=== PATIENT | male | born 1955 | race Caucasian/White ===

== ENCOUNTER 2017-08-01 14:34 | Outpatient (CLI) | payer BC ==
[2017-08-01 15:09] LABS: Hematocrit 40.2 % (42.0-52.0); Mean Platelet Volume 7.6 fL (7.4-10.4); Red Blood Cell (RBC) Count 4.63 mill/uL (4.70-6.10); White Blood Cell (WBC) Count 7.2 thou/uL (4.8-10.8)
[2017-08-01 15:10] LABS: Bilirubin Negative (Negative); Blood, Urine Negative (Negative); Glucose, Urine (Dipstick) Negative (Negative); Ketone, Urine Negative (Negative); Nitrite Negative (Negative); Protein, Urine (Dipstick) Negative (Neg-Trace); Urobilinogen 0.2 mg/dL (0.2-1.0)
[2017-08-01 15:14] LABS: Bacteria/HPF None Seen HPF (None Seen); Hyaline Casts/LPF 4-6 HYALINE CAST LPF (0-3 Hyaline); RBC/HPF 0-3 HPF (0-3); Squamous Epithelial 0-3 HPF (0-3); WBC/HPF 0-3 HPF (0-3)
[2017-08-01 15:17] LABS: PTT 28.2 SEC (22.9-36.1)
[2017-08-01 15:31] LABS: Anion Gap 15 mmol/L (10-20); BUN (Urea Nitrogen) 38 mg/dL (8.4-25.7); Calc. Creatinine Clearance 0 mL/min (70-130); Calcium 9.9 mg/dL (7.8-10.44); Carbon Dioxide 22 mmol/L (23-31); Chloride 101 mmol/L (98-107); Estimated GFR-MDRD 29
--- NOTE | 2017-08-04 17:57 | EKG ---
Test Reason : Blood Pressure : / mmHG Vent. Rate : 073 BPM Atrial Rate : 073 BPM P-R Int : 180 ms QRS Dur : 124 ms QT Int : 390 ms P-R-T Axes : 031 -30 -06 degrees QTc Int : 429 ms Normal sinus rhythm Left axis deviation Left ventricular hypertrophy with QRS widening Abnormal ECG When compared with ECG of 05-APR-2017 14:30, No significant change was found Confirmed by СЕРГЕЙ VILA ([id number]) on 08/04/2017 5:56:41 PM Referred By: Constantino KRUSE Confirmed By:СЕРГЕЙ VILA
== END 2017-08-01 14:35 | disposition home or self-care (01) ==
LOC: LABBT 14:34
PROVIDERS: ATTEND Urology
DX: Z01.810 Encounter for preprocedural cardiovascular examination (principal); Z85.51 Personal history of malignant neoplasm of bladder
CPT/HCPCS: 80048; 81001; 85027; 85610; 85730; 87086; 93005; 93010

== ENCOUNTER 2017-08-09 10:10 | Outpatient (CLI) | payer BC | END 2017-08-09 10:11 | disposition home or self-care (01) | LOC: LABBT 10:10 | PROVIDERS: ATTEND Urology | DX: Z01.818 Encounter for other preprocedural examination (principal); Z85.51 Personal history of malignant neoplasm of bladder | CPT/HCPCS: 86850; 86900; 86901 ==

== ENCOUNTER 2017-08-14 06:23 | Day surgery (SDC) | payer BC ==
[2017-08-01 14:45] VITALS: BMI 31.8
[2017-08-14] MEDS ORDERED: Fentanyl 250 MCG/5 ML VIAL ONE (06:34)
[2017-08-14] MEDS ORDERED: mitoMYcin 40 MG in Sodium Chloride 0.9% 40 ML I-VESIC SCH (07:00)
[2017-08-14] MEDS ORDERED: Levofloxacin 500 mg/D5W 100 ml Premix Bag ONE (07:46)
[2017-08-14] MEDS ORDERED: Iothalamate Meglumine 60% 50 ML VIAL FS ONE ×2 (08:45)
[2017-08-14] MEDS ORDERED: PHENYLEPHRINE-NS 100 MCG/ML 10 ML SYRINGE ONE (09:00)
[2017-08-14] MEDS ORDERED: ePHEDrine/0.9% NaCl/PF SYRINGE 50 mg/10 ml ONE (09:00)
[2017-08-14] MEDS ORDERED: Propofol 200 MG/20 ML VIAL ONE (09:00)
[2017-08-14] MEDS ORDERED: Glycopyrrolate 0.2 MG/ML 5 ML SYRINGE ONE (09:00)
[2017-08-14] MEDS ORDERED: Lidocaine 2% PF 10 ML AMP (For Epidural Use) ONE (09:00)
[2017-08-14] MEDS ORDERED: Ondansetron HCl/PF 4 MG/2 ML Vial ONE (09:00)
[2017-08-14] MEDS ORDERED: Dexamethasone 20 MG/5 ML VIAL ONE (09:00)
[2017-08-14] MEDS ORDERED: Phenazopyridine HCl 97.5 MG TABLET ONE ×2 (10:43)
[2017-08-14] MEDS ORDERED: Oxybutynin Chloride 5 MG TAB ONE (10:43)
--- NOTE | 2017-08-14 12:33 | RAD ---
RETROGRADE PYELOGRAM: A total of 9 fluoroscopic images presented from the OR. Indication: Intraoperative imaging during cystoscopy and retrograde procedure. Comparison: 04-15-17. The prior study indicated placement of right ureteral stent. FINDINGS: On today's exam there is opacification of the right collecting structures. There appears to be mild prominence of the right renal pelvis and there is questionable narrowing at the UPJ. The visualized ureter is otherwise unremarkable. POS: [facility]
--- NOTE | 2017-08-14 12:44 | OP ---
DATE OF CONSULTATION: 08/14/2017 PRIMARY CARE PHYSICIAN: Jasmin Yu M.D. PREOPERATIVE DIAGNOSES: 1. Mr. 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 2. History of superficial multifocal bladder cancer, combination of grade I, high-grade with recurrence, status post induction BCG. POSTOPERATIVE DIAGNOSES: 1. Mr. 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 2. History of superficial multifocal bladder cancer, combination of grade I, high-grade with recurrence, status post induction BCG. PROCEDURES: Cystoscopy, fulguration of multiple bladder tumors; approximately 20 satellite lesions, most of which are size approximately 5-8 mm, largest in the posterior, largest in the dome, approximately 1 cm, 8 mm respectively. Right retrograde pyelogram , intravesical mitomycin-C. SURGEON: Pauline Sandoval D.O. ANESTHESIA: General. COMPLICATIONS: None apparent. SPECIMEN: None. EBL: None. IV FLUIDS: 800 mL. INDICATIONS FOR THE PROCEDURE AND HISTORY: Mr. Florian is a 62-year-old male with history of chronic renal insufficiency status post left nephroureterectomy with bladder cuff, TURBT with pathological T2 high-grade TCC of the bladder. He has had multiple bladder tumor recurrences superficial in nature. He has received adjuvant chemotherapy. He was found to have multiple bladder tumor recurrence of multifocal and had undergone induction BCG uneventfully which he tolerated well. Diagnostic cystoscopy on 08/01/2017 demonstrated multiple satellite lesions. They are small; however multiple in number as above and advised regarding treatment under anesthesia. Risks and complications and indications for the procedure reviewed including, but not limited to, bleeding, pain, infection, injury to adjacent organs, urosepsis, and bladder perforation. All questions answered to his satisfaction, he desired to proceed. DESCRIPTION OF THE PROCEDURE: After an informed consent is signed, the patient is taken to the operating room, placed in a dorsal lithotomy position with the genital area prepped and draped in the usual surgical sterile fashion. A 21- Serbian cystoscope was utilized for cystoscopy which demonstrated no evidence of stricture, no evidence of urethral lesion. Prostatic urethra demonstrated coapting lateral lobes with no significant obstructive component. We entered the bladder with a 21 degree cystoscope. His bladder has an oblong, large capacity morphology. The patient is a tall statured man, we surveyed the bladder with a 30 and a 70 degree lens. The right UO was patulous with clear efflux of urine. Left UO was surgically absent. At the posterior wall most of which are located in the left lateral wall, there are approximately 20 satellite lesions, most of which are approximately 5-8 mm. Two tumor focuses in the dome measured approximately 1 cm and 8 mm respectively. We performed a right retrograde pyelogram first which demonstrated an occult UPJ region; however, there is no evidence of hydronephrosis as the calyces were sharp. He does have an extra renal pelvis with the UPJ component; however, there is no significant functional obstruction as there is adequate excretion of contrast. We then subsequently surveyed the bladder again. I did pass a 26 Serbian continuous sheath resectoscope with a visual obturator to treat the tumors with resection. Unfortunately, due to patient's body habitus and the location of the bladder tumor, the resectoscope would not reach the tumors to be engaged successfully. We attempted multiple times to try to reach the tumors with the bladder near empty. Some of these lesions were able to be fulgurated only with the resectoscope with the bladder near empty state. As visualization is suboptimal with the bladder nearly decompressed to engage these tumors, I did make a decision at this time to transition to a regular cystoscope with an endoscopic Bugbee as this is the only way to engage these tumors as most of them are unable to be reached due to patient's morphology/body habitus, oblong large capacity bladder. Therefore, using a 21-Serbian cystoscope with an endoscopic Bugbee, we desiccated and fulgurated the tumors to eradicate them. We were able to successfully treat the visible tumors. The dome tumors were also treated this with fulguration successfully. Again, I was unable to reach the tumors with the resectoscope loop and the resectoscope sheath unfortunately. We then resurveyed the bladder neck region. I did not see any bladder tumors in the bladder neck of concern. Initially, there may have been a small focus in the bladder neck; however, we surveyed this on multiple occasions with a 30 and a 70 degree lens and I did not see a focus in the bladder neck warranting treatment. We then passed a 20 Serbian three-way Mansfield catheter, 30 mL of sterile water was insufflated. The patient is provided 40 mg of mitomycin-C for intravesical treatments. We will hold retention per protocol and initiate CBI. . He is to be discharged with ciprofloxacin for a course of 3 days, Colace p.r.n. #30, VESIcare 5 mg 1 p.o. daily for 6 days, [place] 5/325 is provided #40 one to two p.o. q.6 hours p.r.n. We were unable to obtain a specimen as I did not want to resect or biopsy tumors that may be unapproachable to fulgurate successfully. Therefore, tumors were fulgurated which required manual pressure suprapubically to engage most of it is tumors as they are challenging to reach. All tumors appeared visibly superficial. I will discuss this matter with patient upon follow up, regarding his next plan of action as he has BCG and chemo-refractory bladder tumor recurrence. Patient underwent uneventful treatment of mitomycin-C, CBI discontinue subsequently with clear urine output. Patient was given voiding trial. Unable to void successfully, 16 Serbian Mansfield catheter to a replaced due to bladder scan demonstrating it 850 mL of postvoid residual. Patient has no prior history of significant urinary retention. He is advised to continue Flomax return to clinic for voiding trial. [facility]
== END 2017-08-14 17:12 | disposition home or self-care (01) ==
LOC: SDC 06:23
PROVIDERS: ATTEND Urology
PROC: 0T5B8ZZ Destruction of Bladder, Via Natural or Artificial Opening Endoscopic (ICD-10-PCS; principal; 2017-08-14)
DX: N32.89 Other specified disorders of bladder (principal); E11.22 Type 2 diabetes mellitus with diabetic chronic kidney disease; I12.9 Hypertensive chronic kidney disease with stage 1 through stage 4 chronic kidney disease, or unspecified chronic kidney disease; N18.9 Chronic kidney disease, unspecified; Z90.6 Acquired absence of other parts of urinary tract; Z98.890 Other specified postprocedural states; Z85.51 Personal history of malignant neoplasm of bladder; Z87.891 Personal history of nicotine dependence
CPT/HCPCS: 51798; 74420; C1758; J1100; J1956; J2001; J2405; J2704; J3010; J7050; J9280; Q9961

== ENCOUNTER 2017-11-28 08:57 | Outpatient (CLI) | payer BC ==
[2017-11-28 10:52] LABS: Bilirubin Negative (Negative); Blood, Urine Trace (Negative); Clarity CLEAR (Clear); Glucose, Urine (Dipstick) Negative (Negative); Leukocyte Negative (Negative); Nitrite Negative (Negative); Protein, Urine (Dipstick) 30 mg/dL (Neg-Trace); Urobilinogen 0.2 mg/dL (0.2-1.0)
[2017-11-28 10:54] LABS: Bacteria/HPF None Seen HPF (None Seen); Hyaline Casts/LPF 0-3 HYALINE CAST LPF (0-3 Hyaline); Pathc Cast-AUWi Flag 0.27 (0-2.49); Squamous Epithelial 0-3 HPF (0-3)
[2017-11-28 10:56] LABS: Renal Epithelial None Seen HPF (0-3); Transitional Epithelial NONE SEEN HPF (0-3)
--- NOTE | 2018-01-27 21:48 | EKG ---
Test Reason : Blood Pressure : / mmHG Vent. Rate : 070 BPM Atrial Rate : 070 BPM P-R Int : 180 ms QRS Dur : 122 ms QT Int : 400 ms P-R-T Axes : 037 -30 -27 degrees QTc Int : 432 ms Normal sinus rhythm Left axis deviation Left ventricular hypertrophy with QRS widening Abnormal ECG When compared with ECG of 01-AUG-2017 14:38, No significant change was found Confirmed by DONNA SCOTT M.D. ([id number]) on 01/27/2018 9:47:58 PM Referred By: URIAH Confirmed By:DONNA SCOTT M.D.
== END 2017-11-28 08:58 | disposition home or self-care (01) ==
LOC: LABBT 08:57
PROVIDERS: ATTEND Urology
DX: Z01.818 Encounter for other preprocedural examination (principal); Z85.51 Personal history of malignant neoplasm of bladder
CPT/HCPCS: 81001; 87086; 93005; 93010

== ENCOUNTER 2017-12-05 08:52 | Outpatient (CLI) | payer BC | END 2017-12-05 08:53 | disposition home or self-care (01) | LOC: BICCT 08:52 | PROVIDERS: ATTEND Urology | DX: C66.2 Malignant neoplasm of left ureter (principal); Q63.8 Other specified congenital malformations of kidney | CPT/HCPCS: 74176; 80048; 85027; 85610; 85730; 86850; 86900; 86901 ==

== ENCOUNTER 2017-12-11 06:00 | Day surgery (SDC) | payer BC ==
[2017-11-28 09:40] VITALS: BMI 31.4
[2017-12-11] MEDS ORDERED: Iothalamate Meglumine 60% 50 ML VIAL FS ONE (08:18)
[2017-12-11] MEDS ORDERED: Levofloxacin 500 mg/D5W 100 ml Premix Bag ONE (08:22)
[2017-12-11] MEDS ORDERED: Midazolam HCl 2 mg/2 ml Vial ONE (08:30)
[2017-12-11] MEDS ORDERED: Fentanyl 100 MCG/2 ML VIAL ONE (08:30)
[2017-12-11] MEDS ORDERED: Oxybutynin 5 MG TAB ONE (09:59)
[2017-12-11] MEDS ORDERED: Phenazopyridine HCl 97.5 MG TABLET ONE (09:59)
--- NOTE | 2017-12-11 10:11 | RAD ---
RETROGRADE URETEROGRAM INTRAOPERATIVE FLUOROSCOPY: History: Ureteral obstruction. FINDINGS: Intraoperative fluoroscopy is provided for retrograde ureterogram as performed by Dr. Sandoval. Th ree spot fluoroscopic images show contrast opacification of a nondistended right ureter and a dilated right renal pelvis and calices. The appearance is similar to the 08-14-17 exam. Fluoro equals 21 mGy*cm^2. POS: [facility]
[2017-12-11] MEDS ORDERED: Sodium Chloride 0.9% 10 ML ONE (11:15)
--- NOTE | 2017-12-11 11:21 | OP ---
DATE OF PROCEDURE: 12/11/2017 SURGEON: Dr. Pauline Sandoval PREOPERATIVE DIAGNOSES: 1. A 62-year-old male with history of left pathologic T2 high-grade transitional cell carcinoma of the left renal pelvis and ureter, status post left nephroureterectomy with bladder cuff. 2. History of bladder cancer, TURBT high and low-grade, superficial on maintenance BCG. 3. Recent cystoscopy grossly negative for visible recurrence; however, positive cytology. 4. History right UPJ moiety with no evidence of functional obstruction on Lasix renal scan. POSTOPERATIVE DIAGNOSES: 1. A 62-year-old male with history of left pathologic T2 high-grade transitional cell carcinoma of the left renal pelvis and ureter, status post left nephroureterectomy with bladder cuff. 2. History of bladder cancer, TURBT high and low-grade, superficial on maintenance BCG. 3. Recent cystoscopy grossly negative for visible recurrence; however, positive cytology 4. History right UPJ moiety with no evidence of functional obstruction on Lasix renal scan. PROCEDURE: Cystoscopy, right retrograde pyelogram, bladder biopsy of the dome, fulguration of biopsy site, 18 Ethiopian 3-way Mansfield catheter to gravity, 3-way port plugged. INTRAOPERATIVE FINDINGS: 1. [place] large capacity bladder with erythematous changes at the dome, nonspecific. 2. Changes consistent with radiation cystitis. 3. Diffuse oozing from the bladder mucosa with distention consistent with BCG cystitis. 4. Right UO patulous. 5. Right retrograde pyelogram demonstrating no evidence of filling defect. 6. Right ureteropelvic junction moiety with no evidence of function obstruction , prompt excretion of contrast noted. INDICATIONS FOR THE PROCEDURE AND HISTORY: Mr. Florian is a 62-year-old diabetic male with history of chronic renal insufficiency, status post left nephroureterectomy with bladder cuff, a TURBT. The patient has undergone induction and maintenance BCG completed 08/2017. Surveillance cystoscopy 2017 demonstrated no visible recurrence. There were some erythematous changes consistent with radiation cystitis; however, no visible papillary recurrence was found. As there is positive cytology, restaging CT was obtained which demonstrated no evidence of visible recurrence, he presents today for exam under anesthesia. Of note, he has a large oblong bladder, we were unable to reach his bladder dome recurrence with the resectoscope on last exam under anesthesia. Therefore, Bugbee biopsy was utilized to fulgurate the bladder tumor lesions previously. Today we have ordered a long resectoscope so that we may approach his bladder dome lesion if indicated. Risks and complications of the procedure was reviewed with him in detail including, but not limited to, bleeding, pain, infection, injury to adjacent organs, urosepsis, bladder perforation clot retention. All questions answered to his satisfaction and he desired to proceed. DESCRIPTION OF THE PROCEDURE: After an informed consent is signed, the patient is taken to the operating room, placed in a dorsal lithotomy position with the genital area prepped and draped in the usual surgical sterile fashion. Again, there is no evidence of urethral lesion, prostatic urethra demonstrated mild coapting lateral lobes. Upon entering the bladder, the right UO was identified patulous in nature with clear efflux of urine. The bladder again demonstrated very long morphology. There was no evidence of recurrence, however, at the bladder dome, there were erythematous areas at the dome with surface area approximately 1.5-2 cm. With distention of the bladder, he began to ooze from these sites, along with diffuse areas of hemorrhagic cystitis consistent with prior BCG cystitis. At this time, using a bladder biopsy and endoscopically biopsied multiple areas at the dome erythematous area. We did transition to a long resectoscope which has been ordered for Mr. Florian. We were able to approach the bladder dome with the long resectoscope without significant issues. Fulguration of the biopsy site as well as the erythematous patch was performed with a gyrus bipolar loop. He does have a tendency for oozing diffusely in the bladder mucosa and this is consistent with BCG cystitis. With adequate hemostasis I then performed a right retrograde pyelogram. This demonstrated chronic right UPJ morphology. He has an extra renal pelvis as previously noted. Upon injection of contrast there was no evidence of filling defect. There is adequate and prompt excretion of contrast. Multiple fluoroscopy images were obtained. He tolerated the procedure well and an 18 Ethiopian three-way Mansfield catheter was inserted with CBI port plugged. This was attached to a leg bag gravity bag demonstrating pink to red tinged urine. He will follow up with me next Saturday to review pathology. If pathology is negative, we will resume his maintenance BCG. [facility]
[2017-12-11] MEDS ORDERED: Lidocaine 1% PF 5 ML VIAL ONE (15:56)
[2017-12-11] MEDS ORDERED: Propofol 200 MG/20 ML VIAL ONE (15:56)
[2017-12-11] MEDS ORDERED: Glycopyrrolate 0.2 MG/ML 5 ML SYRINGE ONE (15:56)
[2017-12-11] MEDS ORDERED: ePHEDrine/0.9% NaCl/PF SYRINGE 50 mg/10 ml ONE (15:56)
[2017-12-11] MEDS ORDERED: Dexamethasone 20 MG/5 ML VIAL ONE (15:56)
[2017-12-11] MEDS ORDERED: Ondansetron HCl/PF 4 MG/2 ML Vial ONE (15:56)
[2017-12-11] MEDS ORDERED: PHENYLEPHRINE-NS 100 MCG/ML 10 ML SYRINGE ONE (15:56)
== END 2017-12-11 11:28 | disposition home or self-care (01) ==
LOC: SDC 06:00
PROVIDERS: ATTEND Urology
PROC: 0T5B8ZZ Destruction of Bladder, Via Natural or Artificial Opening Endoscopic (ICD-10-PCS; principal; 2017-12-11)
PROC: 0TBB8ZX Excision of Bladder, Via Natural or Artificial Opening Endoscopic, Diagnostic (ICD-10-PCS; principal; 2017-12-11)
DX: N30.00 Acute cystitis without hematuria (principal); N30.20 Other chronic cystitis without hematuria; C65.2 Malignant neoplasm of left renal pelvis; C66.2 Malignant neoplasm of left ureter; I12.9 Hypertensive chronic kidney disease with stage 1 through stage 4 chronic kidney disease, or unspecified chronic kidney disease; E11.22 Type 2 diabetes mellitus with diabetic chronic kidney disease; N18.3 Chronic kidney disease, stage 3 (moderate); E78.1 Pure hyperglyceridemia; Q63.8 Other specified congenital malformations of kidney; N40.0 Benign prostatic hyperplasia without lower urinary tract symptoms; Z85.51 Personal history of malignant neoplasm of bladder; Z92.21 Personal history of antineoplastic chemotherapy; Z87.891 Personal history of nicotine dependence; Z79.2 Long term (current) use of antibiotics; Z79.899 Other long term (current) drug therapy; Z90.5 Acquired absence of kidney; Z98.890 Other specified postprocedural states
CPT/HCPCS: 36416; 74420; 88305; C1758; J1100; J1642; J1956; J2001; J2250; J2405; J2704; J3010; Q9961

== ENCOUNTER 2018-01-30 12:08 | Outpatient (CLI) | payer BC ==
--- NOTE | 2018-01-30 14:05 | RAD ---
PA AND LATERAL CHEST X-RAY: 01/30/2018 HISTORY: Preoperative evaluation. COMPARISON: 11/19/2016 FINDINGS: A tunneled right internal jugular vein Mediport catheter remains in place and unchanged in position. The cardiac silhouette is stable in size. The pulmonary vasculature is within normal limits. The l ungs are clear. Vascular calcification is seen in the thoracic aorta. There has been no interval ch uriel from the prior exam. IMPRESSION: Stable chest without evidence of an acute cardiopulmonary process. POS: [facility]
== END 2018-01-30 12:09 | disposition home or self-care (01) ==
LOC: RAD 12:08
PROVIDERS: ATTEND Urology
DX: C66.2 Malignant neoplasm of left ureter (principal); E11.22 Type 2 diabetes mellitus with diabetic chronic kidney disease; N18.9 Chronic kidney disease, unspecified; C67.9 Malignant neoplasm of bladder, unspecified; Q63.8 Other specified congenital malformations of kidney
CPT/HCPCS: 71046

== ENCOUNTER 2018-02-20 11:36 | Outpatient (CLI) | payer BC ==
[2018-02-20 12:17] LABS: Bilirubin Negative (Negative); Blood, Urine Negative (Negative); Clarity CLEAR (Clear); Glucose, Urine (Dipstick) Negative (Negative); Leukocyte Negative (Negative); Mean Corpuscular HGB CONC 34.8 g/dL (32.0-36.0); Mean Corpuscular Hemoglobin 30.6 pg (27.0-31.0); Mean Platelet Volume 7.9 fL (7.4-10.4); Nitrite Negative (Negative); Platelet Count 157 thou/uL (130-400); Protein, Urine (Dipstick) Negative (Neg-Trace); RBC Distribution Width 13.2 % (11.5-14.5); Red Blood Cell (RBC) Count 4.24 mill/uL (4.70-6.10); Specific Gravity, Urine 1.011 (1.002-1.036); Urobilinogen 0.2 mg/dL (0.2-1.0); White Blood Cell (WBC) Count 6.2 thou/uL (4.8-10.8)
[2018-02-20 12:19] LABS: Bacteria/HPF None Seen HPF (None Seen); Hyaline Casts/LPF 4-6 HYALINE CAST LPF (0-3 Hyaline); Pathc Cast-AUWi Flag 1.01 (0-2.49); RBC/HPF 0-3 HPF (0-3)
[2018-02-20 12:23] LABS: INR-International Normal Ratio 1.1; PTT 29.4 SEC (22.9-36.1); Prothrombin Time 14.2 SEC (12.0-14.7)
[2018-02-20 12:29] LABS: Renal Epithelial None Seen HPF (0-3); Transitional Epithelial NONE SEEN HPF (0-3)
[2018-02-20 12:38] LABS: Anion Gap 13 mmol/L (10-20); BUN (Urea Nitrogen) 38 mg/dL (8.4-25.7); Calc. Creatinine Clearance 0 mL/min (70-130); Calcium 8.9 mg/dL (7.8-10.44); Carbon Dioxide 22 mmol/L (23-31); Chloride 103 mmol/L (98-107); Estimated GFR-MDRD 31; Glucose 105 mg/dL (80-115); Potassium 4.2 mmol/L (3.5-5.1); Sodium 134 mmol/L (136-145)
--- NOTE | 2018-02-20 16:40 | EKG ---
Test Reason : Blood Pressure : / mmHG Vent. Rate : 078 BPM Atrial Rate : 078 BPM P-R Int : 184 ms QRS Dur : 120 ms QT Int : 392 ms P-R-T Axes : 034 -19 -19 degrees QTc Int : 446 ms Normal sinus rhythm Non-specific intra-ventricular conduction delay Moderate voltage criteria for LVH, may be normal variant ST elevation consider lateral injury or acute infarct * ACUTE LA * Abnormal ECG Confirmed by KAYLA REN ([id number]) on 02/20/2018 4:39:58 PM Referred By: ESTHER Confirmed By:KAYLA REN
== END 2018-02-20 11:37 | disposition home or self-care (01) ==
LOC: LABBT 11:36
PROVIDERS: ATTEND Urology
DX: Z01.818 Encounter for other preprocedural examination (principal); C67.9 Malignant neoplasm of bladder, unspecified
CPT/HCPCS: 80048; 81001; 85027; 85610; 85730; 86850; 86900; 86901; 87086; 93005; 93010

== ENCOUNTER 2018-02-26 07:00 | Day surgery (SDC) | payer BC ==
[2018-02-13 10:42] VITALS: BMI 34.9
[2018-02-26] MEDS ORDERED: Midazolam HCl 2 mg/2 ml Vial ONE (08:45)
[2018-02-26] MEDS ORDERED: Fentanyl 100 MCG/2 ML VIAL ONE (08:45)
[2018-02-26] MEDS ORDERED: Levofloxacin 500 mg/D5W 100 ml Premix Bag ONE (08:50)
[2018-02-26] MEDS ORDERED: mitoMYcin 40 MG, Admixture Fee 1 EACH in Sodium Chloride 0.9% 40 ML I-VESIC SCH (09:00)
[2018-02-26] MEDS ORDERED: Iothalamate Meglumine 60% 50 ML VIAL FS ONE (09:16)
[2018-02-26] MEDS ORDERED: Phenazopyridine HCl 97.5 MG TABLET ONE (10:17)
[2018-02-26] MEDS ORDERED: Oxybutynin 5 MG TAB ONE (10:17)
--- NOTE | 2018-02-26 12:33 | OP ---
DATE OF PROCEDURE: 02/26/2018 PREOPERATIVE DIAGNOSES: 1. A 62-year-old male with history of left pathologic T2 N0 high-grade transitional cell of the mildred l pelvis, status post left nephroureterectomy with bladder cuff. 2. History of superficial pathologic TA, high-grade transitional cell carcinoma of the bladder, stat us post maintenance #1 BCG with small papillary recurrence at the posterior wall measuring approximat juan 8 mm. POSTOPERATIVE DIAGNOSES: 1. A 62-year-old male with history of left pathologic T2 N0 high-grade transitional cell of the mildred l pelvis, status post left nephroureterectomy with bladder cuff. 2. History of superficial pathologic TA, high-grade transitional cell carcinoma of the bladder, stat us post maintenance #1 BCG with small papillary recurrence at the posterior wall measuring approximat juan 8 mm. PROCEDURE: Cystoscopy, biopsy of bladder tumor, fulguration of posterior dome, and intravesical sania mycin C. INDICATIONS FOR THE PROCEDURE AND HISTORY: Mr. Florian is a 62-year-old male with history of diabetes, chronic renal insufficiency status post left nephroureterectomy with bladder cuff, pathologic T2 hig h-grade transitional cell carcinoma of the left renal pelvis and ureter. He also has history of mixe d high-grade and low-grade superficial bladder cancer. He has been tolerating maintenance and finish ed induction, #1 BCG. Surveillance cystoscopy demonstrated possible bladder tumor recurrence, and th erefore his maintenance #2 BCG was held and underwent exam under anesthesia which demonstrated acute and chronic cystitis with ulceration, no gross bladder tumor recurrence was noted. He presented for restaging of the cystoscopy which demonstrated a small recurrence at the posterior wall, there was a second recurrence vague in nature on local cystoscopy approximately 6 mm. An area of erythema at the posterior dome consistent with prior BCG cystitis. He presents today for exam under anesthesia. Du e to patient's body habitus/morphology and very large bladder capacity, he requires special long rese ctoscope to reach the dome of the bladder. Risks and complications and indications for the procedure was reviewed with him in detail including, but not limited to, bleeding, pain, infection, injury to adjacent organs, urosepsis, bladder perforation, PE, DVT, perioperative morbidity and all questions w ere answered to his satisfaction. He desired to proceed. DESCRIPTION OF THE PROCEDURE: After an informed consent is signed, the patient is taken to the opera ting room, placed in a dorsal lithotomy position with the genital area prepped and draped in the usua l surgical sterile fashion. A 21-Italian cystoscope was utilized for cystoscopy and a 30 and 70 degre e lens was utilized. I did not appreciate any urethral stricture, lateral lobes coapting with no sig nificant obstruction per se, bladder was entered without any issues. Bladder again demonstrates very large capacity morphology. He has a very oblong bladder and visualization is somewhat suboptimal gi joyce his large bladder capacity. We emptied his bladder complete and a 30 and a 70 degree lens was ut ilized. He does have some hyperemic changes at the dome of the bladder consistent with radiation cys titis. Upon filling the bladder, there is some weepy areas of the mucosa due to cystitis and inflamm atory changes. The UO on the right was appreciated and appeared to be patulous. The left UO was ne gically absent. I did not appreciate any trigonal lesion cystoscopy on today's exam, there was a katarina itary tumor recurrence at the posterior wall wall/dome. This was solitary in nature approximately 8 mm. We were barely able to reach it for biopsy for tissue diagnosis given the oblong large capacity bladder. As I was unable to reach the tumors to be completely excised, at this time I transitioned t o [facility] long resectoscope that we had preordered for this patient. Using the long resectoscope with t he visual obturator, we passed into the bladder uneventfully. Using a gyrus bladder loop, we resecte d this total and it was near obliterated given its small size and the bed of it was fulgurated. Upon filling the bladder, he began to have oozing diffusely at the dome of the bladder consistent with BC G cystitis. I fulgurated those that were amendable to be fulgurated and we did obtain good hemostasi s. He tolerated the procedure well. A 22 Italian three-way Mansfield catheter was placed and clamped and secured for retention and mitomycin-C 40 mg and 40 mL of normal saline was instilled into the bladde r and will be held in retention for 1 hour with subsequent CBI. He will be monitored and anticipate he will be discharged home after his mitomycin C. He will follow up in my clinic next week for posto p and review of pathology and we will resume his maintenance BCG. He is discharged with Cipro 250 fo r 7 days, Tawny p.rnathalie, [place] , #40.
[2018-02-26] MEDS ORDERED: PROPOFOL 200 MG/20 ML VIAL ONE (13:20)
[2018-02-26] MEDS ORDERED: Ketorolac Tromethamine 30 MG/ML VIAL ONE (13:20)
[2018-02-26] MEDS ORDERED: Lidocaine 1% PF 5 ML VIAL ONE (13:20)
[2018-02-26] MEDS ORDERED: Glycopyrrolate 0.2 MG/ML 5 ML SYRINGE ONE (13:20)
== END 2018-02-26 12:45 | disposition home or self-care (01) ==
LOC: SDC 07:00
PROVIDERS: ATTEND Urology
PROC: 0TBB8ZX Excision of Bladder, Via Natural or Artificial Opening Endoscopic, Diagnostic (ICD-10-PCS; principal; 2018-02-26)
DX: C67.4 Malignant neoplasm of posterior wall of bladder (principal); I12.9 Hypertensive chronic kidney disease with stage 1 through stage 4 chronic kidney disease, or unspecified chronic kidney disease; E11.22 Type 2 diabetes mellitus with diabetic chronic kidney disease; N18.3 Chronic kidney disease, stage 3 (moderate); D63.1 Anemia in chronic kidney disease; E78.1 Pure hyperglyceridemia; Q63.8 Other specified congenital malformations of kidney; N40.1 Benign prostatic hyperplasia with lower urinary tract symptoms; R33.8 Other retention of urine; Z85.53 Personal history of malignant neoplasm of renal pelvis; Z87.891 Personal history of nicotine dependence; Z79.84 Long term (current) use of oral hypoglycemic drugs; Z79.899 Other long term (current) drug therapy; Z98.890 Other specified postprocedural states
CPT/HCPCS: 76000; 88305; C1758; C1769; J1642; J1885; J1956; J2001; J2250; J2704; J3010; J7050; J9280; Q9961

== ENCOUNTER 2018-06-05 10:25 | Outpatient (CLI) | payer BC ==
--- NOTE | 2018-06-05 11:22 | CT ---
CT ABDOMEN AND PELVIS WITHOUT IV CONTRAST: Technique: Multiple axial tomograms were obtained through the abdomen and pelvis without IV enhanceme nt. Indication: Transitional cell carcinoma left ureter. Prior left nephrectomy. Comparison: 03-15-17 FINDINGS: Lung bases clear. Liver, spleen, and pancreas appear unremarkable considering limitations of a noncontrasted study. Stomach and duodenum unremarkable. Adrenal glands appear normal. Post left nephrectomy changes. Right kidney is unremarkable for an unenhanced exam. No evidence of hydronephrosis. The right ureter is unremarkable. The bladder is mildly contracted and not well evaluated. Mild bladder wall prominence although this c ould be secondary to the mild contracted state of the bladder. Bowel loops unremarkable. Aorta shows calcification but normal caliber. No adenopathy identified. No significant prostatic hypertrophy. Osseous structures are unremarkable. No significant interval change when compared to CT of 03-15-17. IMPRESSION: 1. Post left nephrectomy change. Bladder wall is mildly prominent but contracted state of the bladder limits adequate evaluation of the urinary bladder. 2. No acute process and no significant change when compared to the CT of 03-15-17. POS: [facility]
== END 2018-06-05 10:26 | disposition home or self-care (01) ==
LOC: CT 10:25
PROVIDERS: ATTEND Urology
DX: C66.2 Malignant neoplasm of left ureter (principal); C67.9 Malignant neoplasm of bladder, unspecified; N18.9 Chronic kidney disease, unspecified; Q63.8 Other specified congenital malformations of kidney; Z90.5 Acquired absence of kidney
CPT/HCPCS: 74176

== ENCOUNTER 2018-07-09 05:56 | Day surgery (SDC) | payer BC ==
[2018-06-26 14:50] VITALS: BMI 35.2
[2018-07-09] MEDS ORDERED: Sodium Chloride 0.9% 10 ML ONE (06:18)
[2018-07-09] MEDS ORDERED: mitoMYcin 40 MG in Sodium Chloride 0.9% 40 ML I-VESIC SCH (06:30)
[2018-07-09] MEDS ORDERED: Levofloxacin 500 mg/D5W 100 ml Premix Bag ONE (06:55)
[2018-07-09] MEDS ORDERED: Iothalamate Meglumine 60% 50 ML VIAL FS ONE (07:07)
[2018-07-09] MEDS ORDERED: Fentanyl 100 MCG/2 ML VIAL ONE ×2 (07:27→09:00)
[2018-07-09] MEDS ORDERED: Midazolam HCl 2 mg/2 ml Vial ONE (07:27)
[2018-07-09] MEDS ORDERED: SUGAMMADEX SODIUM 500 MG/5 ML VIAL ONE (08:43)
[2018-07-09] MEDS ORDERED: B & O 30 MG SUPP ONE (08:43)
[2018-07-09] MEDS ORDERED: Hyoscyamine Sulfate SL 0.125 mg Tablet ONE (09:08)
[2018-07-09] MEDS ORDERED: HYDROmorphone 2 MG/ML VIAL ONE (09:11)
--- NOTE | 2018-07-09 09:25 | RAD ---
RETROGRADE RIGHT UROGRAM: DATE: 07/09/18. HISTORY: Right ureteral stent placement. COMPARISON: 12/11/17. FINDINGS/IMPRESSION: Intraoperative fluoroscopy was provided for Dr. Sandoval. There is opacification of the right marley al collecting system with a dilated right renal pelvis and right renal calyces similar to the prior e xam. Correlation with intraoperative findings is recommended. POS: [facility]
[2018-07-09] MEDS ORDERED: Promethazine HCl 25 MG/ML VIAL IM/IV PRN (10:06)
[2018-07-09] MEDS ORDERED: Non-Formulary Medication 1 EACH PO PRN (10:06)
[2018-07-09] MEDS ORDERED: Ondansetron HCl/PF 4 MG/2 ML Vial IVP PRN (10:06)
[2018-07-09] MEDS ORDERED: HYDROmorphone 0.5 MG/0.5 ML SYRINGE SLOW IVP PRN (10:09)
[2018-07-09] MEDS ORDERED: Morphine 4 MG/ML VIAL ONE ×2 (12:41→13:12)
[2018-07-09] MEDS ORDERED: HYDROcodone/Acetaminophen 5/325 mg Tablet ONE (13:12)
--- NOTE | 2018-07-09 13:29 | OP ---
DATE OF PROCEDURE: 07/09/2018 PREOPERATIVE DIAGNOSIS: 1. 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 2. Status post transurethral resection bladder tumor with history of high grade /low grade superficial TCC on maintenance BCG. 3. BCG cystitis. 4. Chronic renal insufficiency. 5. History of noncompliance. POSTOPERATIVE DIAGNOSES: 1. 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 2. Status post transurethral resection bladder tumor with history of high grade /low grade superficial TCC on maintenance BCG. 3. BCG cystitis. 4. Chronic renal insufficiency. 5. History of noncompliance. PROCEDURE: Cystoscopy, right retrograde pyelogram, TURBT of dome lesion, fulguration of biopsy site, intravesical Mitomycin C instillation post-TURBT. SURGEON: Pauline Sandoval D.O. ANESTHESIA: General. COMPLICATIONS: None apparent. DISPOSITION: To the recovery room in stable condition. INTRAOPERATIVE FINDINGS: 1. Mcrae redundant bladder mucosa, with a lesion at the bladder dome approximately 1-1.5 cm. 2. hemorrhagic cystitis changes consistent with BCG. No other lesions found. 3. Mild BPH. 4. Right UO patulous, no evidence of right ureteral filling defect. 5. History of nonobstructing right UPJ with Lasix renal scan demonstrating no evidence of obstruction from the right kidney. SPECIMEN: TUR bladder dome lesion. INDICATIONS FOR THE PROCEDURE AND HISTORY: Mr. 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 He also underwent TURBT due to history of low-grade, high-grade TCC. I had fully informed patient regarding history, indications for a cystectomy if failure, he desired trial of BCG. He has had significant pelvic bladder spasms due to BCG cystitis. He finished his maintenance #2 BCG on 04/01/2018. He underwent surveillance cystoscopy locally 05/29/2018; however, due to severe bladder spasms, I was unable to survey the bladder properly. Therefore, advised regarding exam under anesthesia which he declined. With encouragement, he presents today for cystoscopy, TURBT and exam under anesthesia. Risks and complications of the procedure was fully discussed with patient and family in detail including, but not limited to, bleeding, pain, infection, injury to adjacent organs, urosepsis, bladder perforation. Questions answered to his satisfaction and he desired to proceed. DESCRIPTION OF THE PROCEDURE: After an informed consent is signed, the patient is taken to the operating room, placed in a dorsal lithotomy position with the genital area prepped and draped in the usual surgical sterile fashion. Broad- spectrum antibiotics were provided. A 21 Georgian cystoscope was utilized, which demonstrated no evidence of anterior or posterior urethral lesion. Mild coapting lateral lobes with high median bar was noted. Upon entering the bladder, with distention of the bladder, there was intermittant areas of oozing from the bladder mucosa consistent with BCG cystitis. It took some time to survey the bladder due to the oozing of the bladder mucosa, moreover, a cystoscopy was somewhat challenging as he is significantly redundant bladder and his lesion appeared to be at the dome. We did switch to an ACMI long resectoscope, which was specifically ordered for the patient. Surveying the bladder was performed with the resectoscope on irrigation as bladder mucosa surveillance was difficult due to oozing from the bladder mucosa. We were able to properly survey the bladder with the resectoscope. This was placed with visual obturator. Inspection of the bladder mucosa demonstrated only one area at the dome of the bladder, which required manual pressure at dome to be able to properly engage lesion at the dome due to distance from the bladder neck. We resected this area carefully, as it was challenging to reach even with the resectoscope that was especially brought for the patient. We resected the lesion completely and fulgurated the site successfully. I did attempt to get a deeper resection; however, the bladder mucosa appeared quite attenuated in this region, Due to high risk of bladder perforation I did not pursue a deeper biopsy. There was no evidence of bladder perforation. Bladder was surveyed which I did not see any other lesions. right retrograde pyelogram was performed. This demonstrated history of UPJs previously noted with extrarenal pelvis. His UPJ was previously evaluated with a Lasix renal scan demonstrating no evidence of functional obstruction and I did not see any evidence of filling defect. A 20 Georgian three-way Mansfield catheter was placed, CBI port was plugged. We did instill mitomycin 40 mg in 40 mL of normal saline. We will hold retention per protocol and place CBI. If urine output remains clear, will discharge the patient with a Mansfield catheter. He tends to have episodes of retention with exam under anesthesia. Therefore, we will discharge with indwelling Mansfield catheter. He is discharged with ciprofloxacin until follow up. He may continue his VESIcare, Colace provided. JERRY
== END 2018-07-09 14:50 | disposition home or self-care (01) ==
LOC: SDC 05:56
PROVIDERS: ATTEND Urology
PROC: 0TBB8ZX Excision of Bladder, Via Natural or Artificial Opening Endoscopic, Diagnostic (ICD-10-PCS; principal; 2018-07-09)
DX: C67.9 Malignant neoplasm of bladder, unspecified (principal); N30.90 Cystitis, unspecified without hematuria; T50.A95A Adverse effect of other bacterial vaccines, initial encounter; N40.0 Benign prostatic hyperplasia without lower urinary tract symptoms; I12.9 Hypertensive chronic kidney disease with stage 1 through stage 4 chronic kidney disease, or unspecified chronic kidney disease; E11.22 Type 2 diabetes mellitus with diabetic chronic kidney disease; N18.3 Chronic kidney disease, stage 3 (moderate); E78.5 Hyperlipidemia, unspecified; E03.9 Hypothyroidism, unspecified; Z87.891 Personal history of nicotine dependence; Z85.528 Personal history of other malignant neoplasm of kidney; Z79.84 Long term (current) use of oral hypoglycemic drugs; Z79.899 Other long term (current) drug therapy; Z90.5 Acquired absence of kidney; Z90.6 Acquired absence of other parts of urinary tract
CPT/HCPCS: 74420; 88305; 96374; 96375; A4216; C1758; C1769; J1170; J1642; J1956; J2250; J2270; J3010; J7050; J9280; Q9961

== ENCOUNTER 2018-09-10 09:06 | Outpatient (CLI) | payer BC ==
[2018-09-10 09:56] LABS: #Basophils 0.1 thou/uL (0.0-0.2); #Eosinphils 0.2 thou/uL (0.0-0.7); #Lymphocytes 1.2 thou/uL (1.20-3.40); #Monocytes 0.7 thou/uL (0.11-0.59); #Neutrophils 3.6 thou/uL (1.40-6.50); %Basophils 1.4 % (0.0-1.0); %Eosinophils 3.1 % (0.0-10.0); %Lymphocytes 21.1 % (21.0-51.0); %Monocytes 12.1 % (0.0-10.0); %Neutrophils 62.3 % (42.0-75.0); Hemoglobin 13.3 g/dL (14.0-18.0); Mean Corpuscular HGB CONC 32.7 g/dL (32.0-36.0); Mean Corpuscular Hemoglobin 29.2 pg (27.0-31.0); Mean Corpuscular Volume 89.2 fL (78.0-98.0); Platelet Count 156 thou/uL (130-400); RBC Distribution Width 13.5 % (11.5-14.5); Red Blood Cell (RBC) Count 4.57 mill/uL (4.70-6.10); White Blood Cell (WBC) Count 5.8 thou/uL (4.8-10.8)
[2018-09-10 09:57] LABS: Bilirubin Negative (Negative); Blood, Urine Large (Negative); Clarity CLOUDY (Clear); Glucose, Urine (Dipstick) 100 mg/dL (Negative); Leukocyte Negative (Negative); Nitrite Negative (Negative); Protein, Urine (Dipstick) 30 mg/dL (Neg-Trace); Specific Gravity, Urine 1.013 (1.002-1.036); Urobilinogen 0.2 mg/dL (0.2-1.0); pH, Urine 5.5 (5.0-9.0)
[2018-09-10 09:59] LABS: Bacteria/HPF None Seen HPF (None Seen); Hyaline Casts/LPF 0-3 HYALINE CAST LPF (0-3 Hyaline); Pathc Cast-AUWi Flag 0.29 (0-2.49); RBC/HPF GREATER THAN 50-TNTC HPF (0-3); Squamous Epithelial None Seen HPF (0-3)
[2018-09-10 10:03] LABS: PTT 29.6 SEC (22.9-36.1); Prothrombin Time 13.3 SEC (12.0-14.7)
[2018-09-10 10:24] LABS: Anion Gap 13 mmol/L (10-20); BUN (Urea Nitrogen) 41 mg/dL (8.4-25.7); Calc. Creatinine Clearance 0 mL/min (70-130); Calcium 9.5 mg/dL (7.8-10.44); Carbon Dioxide 24 mmol/L (23-31); Chloride 107 mmol/L (98-107); Estimated GFR-MDRD 23; Glucose 169 mg/dL (80-115); Potassium 4.8 mmol/L (3.5-5.1); Sodium 139 mmol/L (136-145)
--- NOTE | 2018-09-13 10:29 | EKG ---
Test Reason : Blood Pressure : / mmHG Vent. Rate : 083 BPM Atrial Rate : 083 BPM P-R Int : 176 ms QRS Dur : 112 ms QT Int : 380 ms P-R-T Axes : 035 -23 -01 degrees QTc Int : 446 ms Normal sinus rhythm Voltage criteria for left ventricular hypertrophy ST elevation, consider early repolarization, pericarditis, or injury Abnormal ECG When compared with ECG of 26-JUN-2018 15:20, No significant change was found Confirmed by DR. Isaias HAIDER ([id number]) on 09/13/2018 10:29:02 AM Referred By: URIAH Confirmed By:DR. Isaias HAIDER
== END 2018-09-10 09:07 | disposition home or self-care (01) ==
LOC: LABBT 09:06
PROVIDERS: ATTEND Urology
DX: Z01.818 Encounter for other preprocedural examination (principal); Z12.5 Encounter for screening for malignant neoplasm of prostate; C66.2 Malignant neoplasm of left ureter; C67.9 Malignant neoplasm of bladder, unspecified; E11.22 Type 2 diabetes mellitus with diabetic chronic kidney disease; N18.9 Chronic kidney disease, unspecified; Q63.8 Other specified congenital malformations of kidney; Z87.898 Personal history of other specified conditions
CPT/HCPCS: 80048; 81001; 85025; 85610; 85730; 87086; 93005; 93010

== ENCOUNTER 2018-09-22 11:58 | Outpatient (CLI) | payer BC | END 2018-09-22 11:59 | disposition home or self-care (01) | LOC: LABBT 11:58 | PROVIDERS: ATTEND Urology | DX: Z01.812 Encounter for preprocedural laboratory examination (principal); C66.2 Malignant neoplasm of left ureter; C67.9 Malignant neoplasm of bladder, unspecified; E11.22 Type 2 diabetes mellitus with diabetic chronic kidney disease; N18.9 Chronic kidney disease, unspecified; Z12.5 Encounter for screening for malignant neoplasm of prostate; Q63.8 Other specified congenital malformations of kidney; Z87.448 Personal history of other diseases of urinary system | CPT/HCPCS: 86850; 86900; 86901 ==

== ENCOUNTER 2018-09-24 06:06 | Day surgery (SDC) | payer BC ==
[2018-09-10 09:35] VITALS: BMI 35.2
[2018-09-24] MEDS ORDERED: Levofloxacin 500 mg/D5W 100 ml Premix Bag ONE (06:54)
[2018-09-24] MEDS ORDERED: Fentanyl 100 MCG/2 ML VIAL ONE (08:28)
[2018-09-24] MEDS ORDERED: Midazolam HCl 2 mg/2 ml Vial ONE (08:28)
[2018-09-24] MEDS ORDERED: Glycopyrrolate 0.2 MG/ML 5 ML SYRINGE ONE (09:34)
[2018-09-24] MEDS ORDERED: PROPOFOL 200 MG/20 ML VIAL ONE (09:34)
[2018-09-24] MEDS ORDERED: ePHEDrine/0.9% NaCl/PF SYRINGE 50 mg/10 ml ONE (09:34)
[2018-09-24] MEDS ORDERED: Succinylcholine Chloride 20 MG/ML 10 ml SYRINGE FS ONE (09:34)
[2018-09-24] MEDS ORDERED: Ondansetron PF 4 MG/2 ML Vial ONE (09:34)
[2018-09-24] MEDS ORDERED: Lidocaine 1% PF 5 ML VIAL ONE (09:34)
[2018-09-24] MEDS ORDERED: B & O ONE (10:00)
[2018-09-24] MEDS ORDERED: Hyoscyamine Sulfate SL 0.125 mg Tablet ONE ×2 (10:47→10:51)
[2018-09-24] MEDS ORDERED: Phenazopyridine HCl 97.5 MG TABLET ONE (11:41)
--- NOTE | 2018-09-25 09:02 | OP ---
DATE OF PROCEDURE: 09/24/2018 PREOPERATIVE DIAGNOSES: 1. 63-year-old obese male with history of high-grade transitional cell carcinoma of the renal pelvis, ureter, status post nephroureterectomy with bladder cuff. 2. 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 POSTOPERATIVE DIAGNOSES: 1. 63-year-old obese male with history of high-grade transitional cell carcinoma of the renal pelvis, ureter, status post nephroureterectomy with bladder cuff. 2. 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 PROCEDURES PERFORMED: Cystoscopy, transurethral resection of bladder tumour of multiple satellite bladder tumors, fulguration of bladder tumor. ANESTHESIA: General. COMPLICATIONS: None apparent. DISPOSITION: To recovery room in stable condition. DRAINS: 3-way Mansfield catheter, 30 mL insufflated, CBI plugged to gravity bag. SPECIMEN: TUR of bladder tumor. ESTIMATED BLOOD LOSS: Minimal, less than 50 mL. IV FLUIDS: Approximately 600 mL. INDICATIONS FOR PROCEDURE AND HISTORY: Mr. Florian is a 63-year-old male, with a history of high-grade pathologic T2 TCC of the left renal pelvis, status post nephroureterectomy with bladder cuff. He did receive adjuvant chemotherapy. He has had multiple bladder tumor recurrences, which have been treated with TURBTs. He has undergone induction of maintenance BCG; however, due to positive cytology, presents today for exam under anesthesia. Of note, the patient has had significant irritative symptoms of BCG cystitis; therefore, a local cystoscopy has been quite cumbersome. Moreover, his body habitus is very challenging due to his morbid obesity, very large oblong bladder, which requires a special Olympus scope to be slided in so that we can reach the dome of the bladder tumor. He presents today for exam under anesthesia. Risks and complications including but not limited to bleeding, pain, infection, injury to adjacent organs, urosepsis, bladder or ureteral injury, stricture formation. All questions were answered to his satisfaction and he desired to proceed. DESCRIPTION OF PROCEDURE: After an informed consent was signed, the patient was taken to the operating room and placed in a dorsal lithotomy position with the genital area prepped and draped in the usual surgical sterile fashion. Bilateral CAR hoses, SCDs, and broad-spectrum antibiotics were provided. We initially used a 21-Bengali cystoscope with a 30-degree lens. The anterior and posterior urethra were within normal limits. Bilobar coapting lobes with no obvious obstruction, high median bar was noted. Bladder was entered. Upon filling the bladder, he does have hematuria component diffusely from the bladder mucosa consistent with BCG cystitis. It required some manipulation and time for his bladder to clear to adequately visualize his bladder mucosa. Previous bladder dome lesion was treated with TUR and came back as granulomatous tissue. There was some hyperemic areas consistent with BCG cystitis diffusely. We surveyed the bladder using a 30 and 70-degree lens. There right UO was patulous with clear output. Cystoscopy demonstrated multiple papillary tumor recurrence, which was not present 3 months ago. He had multiple satellite lesions, although small, they were approximately 8 to 9, numerous, located in the posterior bilateral lateral wall and anterior near the dome. Each recurrence was approximately 6 to 8 mm. Most of the tumor was resected. Then, we had to transition to an Olympus long resectoscope and long Gyrus scoop to engage most of these tumors; they were in the lateral wall. Moreover, manual compression of the bladder had to be performed to engage some of the tumors due to his large body habitus. In addition, some of the tumors were only able to be engaged with bladder minimally distended. Most of the tumors were able be resected; however, there were some tumors that it was very difficult to reach; therefore, fulguration was performed instead. At the end of the procedure, no obvious bleeding was appreciated, some weepy mucosa was noted from BCG cystitis, but not warranting obvious fulguration at this time. Most of the bladder tumors recurrence was located: Mid trigone x2, left lateral 2 to 3, right lateral 2 in number, and anterior bladder neck region approximately 2 satellite lesions. Specimen was evacuated with [facility] evacuator. I did have to transition to our standard Gyrus scope, as even with a 12-degree Olympus scope, the lens became suboptimal to use, as he requires torquing of the scope due to tight suspensory ligament of his penis / scrotum hindering the deflection of the resectoscope to engage some of the tumors. At the end of the procedure, we did place 20f 3-way, 30 mL urethral Mansfield catheter to gravity and attached to his leg bag. We will monitor his urine output and if the urine is relatively clear, we will discharge with indwelling Mansfield catheter to leg bag. He will be discharged with ciprofloxacin until followup. He is to resume his Avodart and Flomax regimen as he had symptoms of prostatitis, may continue his VESIcare for bladder spasms. As I previously discussed with the patient, I will again discuss with him regarding radical cystectomy as he has had accelerated recurrence despite BCG. Job ID: [id number] MTDD
== END 2018-09-24 13:35 | disposition home or self-care (01) ==
LOC: SDC 06:06
PROVIDERS: ATTEND Urology
PROC: 0T5B8ZZ Destruction of Bladder, Via Natural or Artificial Opening Endoscopic (ICD-10-PCS; principal; 2018-09-24)
DX: C67.9 Malignant neoplasm of bladder, unspecified (principal); N30.81 Other cystitis with hematuria; I12.9 Hypertensive chronic kidney disease with stage 1 through stage 4 chronic kidney disease, or unspecified chronic kidney disease; E11.22 Type 2 diabetes mellitus with diabetic chronic kidney disease; N18.3 Chronic kidney disease, stage 3 (moderate); D63.1 Anemia in chronic kidney disease; E78.5 Hyperlipidemia, unspecified; E03.9 Hypothyroidism, unspecified; E66.01 Morbid (severe) obesity due to excess calories; Z68.35 Body mass index [BMI] 35.0-35.9, adult; Z79.84 Long term (current) use of oral hypoglycemic drugs; Z79.899 Other long term (current) drug therapy; Z90.5 Acquired absence of kidney
CPT/HCPCS: 88305; 88307; C1758; C1769; J1642; J1956; J2001; J2250; J2405; J2704; J3010

== ENCOUNTER 2019-07-17 21:04 | Inpatient (IN) | payer BC ==
[2019-07-17] MEDS ORDERED: Acetaminophen 500 MG TAB ONE (21:39)
[2019-07-17 21:46] LABS: #Eosinphils 0.3 thou/uL (0.0-0.7); #Lymphocytes 0.7 thou/uL (1.20-3.40); #Monocytes 0.6 thou/uL (0.11-0.59); #Neutrophils 5.4 thou/uL (1.40-6.50); %Basophils 0.1 % (0.0-1.0); %Eosinophils 3.9 % (0.0-10.0); %Lymphocytes 10.5 % (21.0-51.0); %Monocytes 7.9 % (0.0-10.0); %Neutrophils 77.7 % (42.0-75.0); Hemoglobin 9.3 g/dL (14.0-18.0); Mean Corpuscular HGB CONC 31.3 g/dL (32.0-36.0); Mean Corpuscular Hemoglobin 27.3 pg (27.0-31.0); Mean Corpuscular Volume 87.4 fL (78.0-98.0); Mean Platelet Volume 9.1 fL (7.4-10.4); Platelet Count 180 thou/uL (130-400); Red Blood Cell (RBC) Count 3.41 mill/uL (4.70-6.10); White Blood Cell (WBC) Count 6.9 thou/uL (4.8-10.8)
--- NOTE | 2019-07-17 21:46 | RAD ---
Portable chest: 07/17/2019 at 9:23 PM COMPARISON: 07/17/2019 at 7:46 AM HISTORY: Fever, sepsis protocol FINDINGS: Stable prominence of the cardiac silhouette, pulmonary vascular congestion, and right-sided dialysis catheter. There is mild focal hazy density in the right lung base which could signify volume loss or infiltrate . No lobar consolidation or alveolar edema. IMPRESSION: Mild hazy density in the right lung base as detailed above.
[2019-07-17 21:52] LABS: INR-International Normal Ratio 1.5; Prothrombin Time 18.1 SEC (12.0-14.7)
[2019-07-17 21:53] LABS: PTT 38.9 SEC (22.9-36.1)
[2019-07-17 22:14] LABS: ALT (SGPT) Less than 7 U/L (8-55); AST (SGOT) 13 U/L (5-34); Albumin 2.8 g/dL (3.4-4.8); Alkaline Phosphatase 61 U/L (40-150); Anion Gap 18 mmol/L (10-20); BUN (Urea Nitrogen) 30 mg/dL (8.4-25.7); Bilirubin, Total 1.4 mg/dL (0.2-1.2); CK (CPK) Less than 9 U/L (30-200); Calc. Creatinine Clearance 0 mL/min (70-130); Calcium 8.9 mg/dL (7.8-10.44); Carbon Dioxide 26 mmol/L (23-31); Chloride 97 mmol/L (98-107); Estimated GFR-MDRD 9; Glucose 128 mg/dL (80-115); Potassium 4.7 mmol/L (3.5-5.1); Protein, Total 6.8 g/dL (5.8-8.1); Sodium 136 mmol/L (136-145)
[2019-07-17] MEDS ORDERED: Piperacillin/Tazobactam 3.375 GM VIAL ONE (23:46)
[2019-07-18] MEDS ORDERED: Acetaminophen 650 MG Suppository PR PRN (00:09)
[2019-07-18] MEDS ORDERED: Ondansetron PF 4 MG/2 ML Vial IVP PRN (00:09)
[2019-07-18] MEDS ORDERED: Ondansetron ODT 4 MG TAB PO PRN (00:09)
[2019-07-18 01:30] VITALS: BMI 27.8
[2019-07-18] MEDS ORDERED: Vancomycin HCl 500 MG in Sodium Chloride 0.9% 100 ML IVPB SCH ×2 (01:45→15:00)
[2019-07-18] MEDS ORDERED: Vancomycin HCl 750 MG in Sodium Chloride 0.9% 250 ML 250 ML IVPB SCH (01:45)
[2019-07-18] MEDS ORDERED: Vancomycin HCl 1 GM in Premix Bag 1 BAG IVPB SCH (01:45)
[2019-07-18] MEDS ORDERED: Vancomycin HCl 1.25 GM in Sodium Chloride 0.9% 250 ML 250 ML IVPB SCH (01:45)
[2019-07-18] MEDS ORDERED: HOLD VANCOMYCIN FOR LEVEL >20 FS SCH (01:45)
[2019-07-18] MEDS ORDERED: HumaLOG 300 UNITS/3 ML VIAL SC PRN (01:56)
[2019-07-18] MEDS ORDERED: Dextrose 50% Abboject 50 ML SYRINGE SLOW IVP PRN (01:56)
[2019-07-18] MEDS ORDERED: Dextrose 5% in Water 1,000 ML IV PRN (01:56)
[2019-07-18] MEDS ORDERED: Vancomycin HCl 1.75 GM in Sodium Chloride 0.9% 500 ML IVPB SCH (02:00)
--- NOTE | 2019-07-18 02:46 | HP ---
TIME OF EVALUATION: 12 a.m. PRIMARY CARE DOCTOR: Magan Yu MD CODE STATUS: Full code. CHIEF COMPLAINT: Fever. HISTORY OF PRESENT ILLNESS: This is a 64-year-old male patient with history of end-stage renal disease, on hemodialysis. The [facility] is a [facility], came to the hospital after having fever associated with severe chills with no clear triggers, no alleviating factors. The patient also has some associated cough with scant sputum production. REVIEW OF SYSTEMS: All systems were reviewed and negative except for the findings mentioned above. PAST MEDICAL HISTORY: The patient has a history of end-stage renal disease, on hemodialysis Saturday, , and Saturday, diabetes, hypertension, history of bladder cancer. PAST SURGICAL HISTORY: Bilateral kidney removal, bladder removal, tonsillectomy. PSYCHIATRIC HISTORY: No previous psych history. SOCIAL HISTORY: No alcohol. No drugs. Former tobacco user. The patient quit smoking more than 10 years ago. Lives in a long-term facility. KNOWN ALLERGIES: No known drug allergies. REPORTED MEDICATIONS: 1. Aspirin. 2. Carvedilol. 3. Fenofibrate. 4. Furosemide. 5. Levemir. 6. Humulin R. 7. Pantoprazole. 8. Polyethylene glycol. 9. Pregabalin. 10. Senna. 11. Tylenol. 12. Benzocaine. 13. Calcium carbonate. 14. Clonidine. 15. Guaifenesin. 16. Loperamide. 17. Magnesium hydroxide. 18. Simethicone. PHYSICAL EXAMINATION: VITAL SIGNS: On presentation, blood pressure 125/73 with heart rate of 100, respiratory rate was 18, temperature 100.1, pain was 0/10, oxygen saturation was 88 on room air. GENERAL APPEARANCE: The patient is alert, oriented, no acute distress. HEENT: Eyes; normal conjunctivae. Moist oral mucosa. Anicteric. No JVD. RESPIRATORY: Bilateral air entry. No rales. No wheezes. Symmetric expansion. CARDIOVASCULAR: Normal rate, regular rhythm. No murmurs. No gallop. No edema. ABDOMEN: Soft. Normal bowel sounds. MUSCULOSKELETAL: Baseline range of motion and strength. SKIN: Warm and intact. No pallor. No rash. No redness. Capillary refill seems to be intact. NEUROLOGIC: No evidence of any new focal weakness. Cranial nerves seem to be intact. PSYCH: The patient is in good mood. No anxiety. Optimal judgment. DIAGNOSTIC STUDIES: EKG was reviewed. The patient has normal sinus rhythm with a rate of 100, moderate voltage for LVH. Chest x-ray, mild hazy density in the right lung base that seems to be an infiltrate. LABORATORY DATA: Labs are reviewed. The patient has white count 6.9, hemoglobin 9.3, MCV 87.4, platelet count 280. Coagulation; PT 18.1, INR 1.5, PTT 38.9. Sodium 136, potassium 4.7, chloride 97, carbon dioxide 26, anion gap 18, BUN 30, creatinine 6.08, GFR 9, glucose 128, lactic acid 0.8, calcium 8.9, total bilirubin 1.4, AST 13, ALT less than 7, alkaline phosphatase 61. Serum total protein 6.8, albumin 2.9. ASSESSMENT AND PLAN: The patient will be placed in the hospital with following medical problems: 1. Right lower lobe pneumonia seen on the chest x-ray. The patient is a dialysis patient, so we will treat for healthcare-associated pneumonia. We will send cultures and we will adjust as per sensitivity. 2. End-stage renal disease, on dialysis Saturday, , and Saturday, follows with Dr. Sanchez. We will consult Nephrology for dialysis as inpatient. 3. Normocytic anemia, likely secondary to end-stage renal disease. We will defer to Nephrology for any further recommendation. This is stable, can be followed as outpatient. 4. Uncontrolled diabetes with sugar of 128. Reconcile home medications. Place the patient on sliding scale. 5. Deep venous thrombosis prophylaxis. 6. Controlled hypertension. Reconcile home medications. Job ID: [id number]
[2019-07-18 06:52] LABS: #Eosinphils 0.3 thou/uL (0.0-0.7); #Lymphocytes 0.7 thou/uL (1.20-3.40); #Monocytes 0.6 thou/uL (0.11-0.59); #Neutrophils 3.4 thou/uL (1.40-6.50); %Basophils 0.7 % (0.0-1.0); %Eosinophils 6.4 % (0.0-10.0); %Lymphocytes 14.3 % (21.0-51.0); %Monocytes 12.1 % (0.0-10.0); %Neutrophils 66.6 % (42.0-75.0); Hemoglobin 8.2 g/dL (14.0-18.0); Mean Corpuscular HGB CONC 30.6 g/dL (32.0-36.0); Mean Corpuscular Hemoglobin 26.2 pg (27.0-31.0); Mean Corpuscular Volume 85.5 fL (78.0-98.0); Mean Platelet Volume 8.7 fL (7.4-10.4); Platelet Count 151 thou/uL (130-400); Red Blood Cell (RBC) Count 3.14 mill/uL (4.70-6.10)
[2019-07-18 07:44] LABS: Anion Gap 15 mmol/L (10-20); BUN (Urea Nitrogen) 37 mg/dL (8.4-25.7); Calc. Creatinine Clearance 15 mL/min (70-130); Calcium 8.5 mg/dL (7.8-10.44); Carbon Dioxide 27 mmol/L (23-31); Chloride 100 mmol/L (98-107); Estimated GFR-MDRD 8; Glucose 135 mg/dL (80-115); Potassium 4.6 mmol/L (3.5-5.1); Sodium 137 mmol/L (136-145)
[2019-07-18] MEDS: Heparin 5,000 UNITS/ML VIAL SC SCH ×3 (08:24→20:08)
[2019-07-18] MEDS ORDERED: Prevnar 13-Val Conj/PF 0.5 ML SYRINGE IM ONE (09:00)
[2019-07-18 11:32] LABS: Vancomycin, Random 18.7 ug/mL (See Comment)
--- NOTE | 2019-07-18 12:13 | EKG ---
Test Reason : Blood Pressure : / mmHG Vent. Rate : 100 BPM Atrial Rate : 100 BPM P-R Int : 158 ms QRS Dur : 104 ms QT Int : 330 ms P-R-T Axes : 028 -27 -02 degrees QTc Int : 425 ms Normal sinus rhythm Moderate voltage criteria for LVH, may be normal variant Borderline ECG Confirmed by KALPESH VUONG D.O. ([id number]), acquisition editor SHON JACQUES ([id number]) on 07/18/2019 12:13:03 PM Referred By: Confirmed By:KALPESH VUONG D.O.
[2019-07-18] MEDS: Piperacillin/Tazobactam 2.25 GM in Sodium Chloride 0.9% 100 ML IVPB SCH (14:30)
[2019-07-18] MEDS ORDERED: Calcium Carbonate 500 MG ChewTAB PO PRN (15:42)
--- NOTE | 2019-07-18 16:37 | CON ---
DATE OF CONSULTATION: 07/18/2019 CONSULTING PHYSICIAN: Thao Perez MD REASON FOR CONSULTATION: End-stage renal disease evaluation. REASON FOR ADMISSION: Fever. HISTORY OF PRESENT ILLNESS: This is a 64-year-old male with history of end-stage renal disease, hypertension, and diabetes, who came to the hospital with fever. He was at the rehab, previously he was at [facility]. He gets dialysis through a tunneled dialysis catheter. The patient was having cough, chills, and fever and was sent to the main hospital. He is feeling better yesterday after the antibiotic. PAST MEDICAL HISTORY: Positive for end-stage renal disease, diabetes, hypertension, and bladder cancer. PAST SURGICAL HISTORY: Bilateral kidney removal, bladder removal, and tonsillectomy. HOME MEDICATIONS: 1. Aspirin. 2. Carvedilol. 3. Fenofibrate. 4. Furosemide. 5. Levemir. 6. Humulin R. 7. Pantoprazole. 8. Polyethylene glycol. 9. Pregabalin. 10. Senna. 11. Tylenol. 12. Benzocaine. 13. Calcium carbonate. 14. Clonidine. 15. Guaifenesin. 16. Loperamide. 17. Magnesium. 18. Simethicone. ALLERGIES: NO KNOWN DRUG ALLERGIES. SOCIAL HISTORY: No smoking, alcohol, or illicit drugs. FAMILY HISTORY: No history of kidney disease. REVIEW OF SYSTEMS: CONSTITUTIONAL: Negative for weight loss or gain, ability to conduct usual activities. SKIN: Negative for rash, itching. EYES: Negative for double vision, pain. ENT/MOUTH: Negative for nose bleeding, neck stiffness, pain, tenderness. CARDIOVASCULAR: Negative for palpitations, dyspnea on exertion, orthopnea. RESPIRATORY: Negative for shortness of breath, wheezing, cough, hemoptysis, fever or night sweats. GASTROINTESTINAL: Negative for poor appetite, abdominal pain, heartburn, nausea, vomiting, constipation, or diarrhea. GENITOURINARY: Negative for urgency, frequency, dysuria, nocturia. MUSCULOSKELETAL: Negative for pain, swelling. NEUROLOGIC/PSYCHIATRIC: Negative for anxiety, depression. ALLERGY/IMMUNOLOGIC: Negative for skin rash, bleeding tendency. PHYSICAL EXAMINATION: GENERAL: Well-built male, in no apparent distress. VITAL SIGNS: Temperature 98.2, pulse 69, respiratory rate 16, and blood pressure 124/67. HEENT: Atraumatic, normocephalic. Oral mucosa moist. NECK: Supple. CARDIOVASCULAR: S1 and S2. Regular rate and rhythm. RESPIRATORY: Clear. GASTROINTESTINAL: Abdomen is soft. MUSCULOSKELETAL: 1+ edema. DERMATOLOGIC: No skin rash. NEUROLOGIC: Alert and awake. PSYCHIATRIC: Mood and affect normal. LABORATORY DATA: Hemoglobin is 8.2, potassium 4.6, BUN is 37, and creatinine 6.7. ASSESSMENT AND PLAN: 1. End-stage renal disease. Continue dialysis as tolerated. 2. Edema, controlled. 3. Hypertension. 4. Anemia of chronic disease. 5. Obesity. Plan is to continue on dialysis. Continue antibiotics. We will follow. Job ID: [id number]
[2019-07-18] MEDS: Acetaminophen 325 MG TAB PO PRN (20:08)
[2019-07-18] MEDS: Senokot S 8.6-50 MG TAB PO SCH (21:10)
[2019-07-19] MEDS: Piperacillin/Tazobactam 2.25 GM in Sodium Chloride 0.9% 100 ML IVPB SCH ×3 (00:31→23:08)
[2019-07-19] MEDS: Acetaminophen 325 MG TAB PO PRN ×2 (00:31→19:51)
[2019-07-19 05:48] LABS: #Eosinphils 0.5 thou/uL (0.0-0.7); #Lymphocytes 0.8 thou/uL (1.20-3.40); #Monocytes 0.7 thou/uL (0.11-0.59); #Neutrophils 3.1 thou/uL (1.40-6.50); %Basophils 0.1 % (0.0-1.0); %Eosinophils 9.2 % (0.0-10.0); %Lymphocytes 16.2 % (21.0-51.0); %Monocytes 13.5 % (0.0-10.0); %Neutrophils 60.9 % (42.0-75.0); Mean Corpuscular HGB CONC 30.7 g/dL (32.0-36.0); Mean Platelet Volume 8.8 fL (7.4-10.4); Platelet Count 157 thou/uL (130-400); RBC Distribution Width 18.1 % (11.5-14.5); Red Blood Cell (RBC) Count 2.96 mill/uL (4.70-6.10); White Blood Cell (WBC) Count 5.1 thou/uL (4.8-10.8)
[2019-07-19 06:12] LABS: ALT (SGPT) Less than 7 U/L (8-55); AST (SGOT) 12 U/L (5-34); Albumin 2.2 g/dL (3.4-4.8); Alkaline Phosphatase 47 U/L (40-150); Anion Gap 14 mmol/L (10-20); BUN (Urea Nitrogen) 25 mg/dL (8.4-25.7); CRP (Inflammatory) 12.71 mg/dL (= or < 0.5); Calc. Creatinine Clearance 20 mL/min (70-130); Calcium 8.1 mg/dL (7.8-10.44); Carbon Dioxide 26 mmol/L (23-31); Chloride 101 mmol/L (98-107); Estimated GFR-MDRD 12; Globulin 3.4 g/dL (2.4-3.5); Glucose 130 mg/dL (80-115); Potassium 3.9 mmol/L (3.5-5.1); Protein, Total 5.6 g/dL (5.8-8.1); Sodium 137 mmol/L (136-145)
--- NOTE | 2019-07-19 07:04 | PDOC.FM ---
- Subjective Subjective: Pt notes fever last night but feeling well this morning. Some mild SOB w/ continued cough that he states is intermittently productive. Otherwise feeling well. - Objective Vital Signs & Weight: Vital Signs (12 hours) Temp Pulse Resp BP Pulse Ox 07/19/19 05:07 98.0 F 82 20 116/65 97 07/18/19 23:09 99.5 F 92 20 106/59 L 96 07/18/19 20:00 101.1 F H 100 20 123/68 97 Weight Weight 92.986 kg I&O: 07/17/19 07/18/19 07/19/19 06:59 06:59 06:59 Intake Total 500 1690 Output Total 3000 Balance 500 -1310 Result Diagrams: 07/19/19 05:33 07/19/19 05:33 Phys Exam - Physical Examination Constitutional: NAD HEENT: moist MMs Neck: full ROM Respiratory: no wheezing, no rales, no rhonchi minimally decreased BS RLL Cardiovascular: RRR, no significant murmur Gastrointestinal: soft, non-tender Musculoskeletal: no edema, pulses present Neurological: non-focal, moves all 4 limbs Psychiatric: normal affect, A&O x 3 Skin: no rash Dx/Plan (1) Pneumonia Code(s): J18.9 - PNEUMONIA, UNSPECIFIED ORGANISM Status: Acute Qualifiers: Laterality: right Lung location: lower lobe of lung (2) Diabetes mellitus Code(s): E11.9 - TYPE 2 DIABETES MELLITUS WITHOUT COMPLICATIONS Status: Chronic Qualifiers: Diabetes mellitus type: type 2 (3) Dyslipidemia Code(s): E78.5 - HYPERLIPIDEMIA, UNSPECIFIED Status: Chronic (4) HTN (hypertension) Code(s): I10 - ESSENTIAL (PRIMARY) HYPERTENSION Status: Chronic Qualifiers: Hypertension type: essential hypertension Qualified Code(s): I10 - Essential (primary) hypertension - Plan Plan: Health care acquired PNA - RLL pneumonia seen on CXR in dialysis pt - Abx Vanc (pharmacy to dose) and Zosyn - Fever last night - No leukocytosis, trend CBC ESRD - S/p bilateral nephrectomy - , , Sat dialysis pt - Nephro following for inpt dialysis Normocytic Anemia - Likely 2/2 ESRD - Trend CBC Diabetes mellitus II - uncontrolled - Home rx (levemir and humilinR) + SSI - POC glucose checks and hypoglycemic protocol Hypertension - controlled - Home rx: Carvedilol DVT: Heparin Diet: CC Code: Full Addendum - Attending - Attending Attestation Date/Time: 07/19/192128 I personally evaluated the patient and discussed the management with Dr. Santillan. I agree with the History, Examination, Assessment and Plan documented above with any addition or exceptions noted below. PNA- patient states he doesn't live in a NH and that he does home dialysis. So unsure if HCAP or CAP. On Vanc and zosyn renally dosed. COntinue for 48 hours and then deescalate. ESRD-dialysis per nephro 1/2 positive MRSE blood cultures- await sensitivities and discuss with Melissa.
[2019-07-19] MEDS: Senokot S 8.6-50 MG TAB PO SCH ×2 (08:14→19:51)
[2019-07-19] MEDS: Famotidine 20 MG TAB PO SCH (08:14)
[2019-07-19] MEDS: Heparin 5,000 UNITS/ML VIAL SC SCH ×2 (08:14→19:51)
--- NOTE | 2019-07-19 14:26 | PRG ---
DATE OF SERVICE: 07/19/2019 SUBJECTIVE: Patient was seen and examined at bedside and overnight events noted. Patient denies any shortness of breath or chest pain or palpitation. No history of nausea or vomiting or diarrhea or fever or chills or cramps. OBJECTIVE: GENERAL: This is a well-built male, in no acute distress. VITAL SIGNS: Temperature 98.4. Heart rate 89. Respiratory rate . Blood pressure 119/63. HEENT: Atraumatic, normocephalic. Oral mucosa is moist NECK: Supple. CARDIOVASCULAR: S1, S2 heard. Rate and rhythm regular. RESPIRATORY: Clear to auscultation. GASTROINTESTINAL: Abdomen is soft. MUSCULOSKELETAL: No tenderness. No edema. DERMATOLOGIC: No skin rash. NEUROLOGIC: Alert and awake and oriented X3. No focal neurologic deficits. Moving all the extremities. PSYCHIATRIC: Mood and affect normal. LABORATORY DATA: Potassium is 3.9, BUN is 25, creatinine is 4.8. ASSESSMENT: 1. End-stage renal disease. Continue dialysis Saturday, Saturday, and Saturday. 2. Edema. I will remove fluid. 3. Hypertension. 4. Anemia of chronic disease. PLAN: To continue dialysis as tolerated. Job ID: [id number]
[2019-07-20 05:46] LABS: #Eosinphils 0.5 thou/uL (0.0-0.7); #Lymphocytes 0.8 thou/uL (1.20-3.40); #Monocytes 0.7 thou/uL (0.11-0.59); #Neutrophils 3.5 thou/uL (1.40-6.50); %Basophils 0.4 % (0.0-1.0); %Eosinophils 8.4 % (0.0-10.0); %Lymphocytes 14.4 % (21.0-51.0); %Monocytes 12.7 % (0.0-10.0); %Neutrophils 64.1 % (42.0-75.0); Hemoglobin 7.9 g/dL (14.0-18.0); Mean Corpuscular HGB CONC 30.7 g/dL (32.0-36.0); Mean Platelet Volume 9.4 fL (7.4-10.4); Platelet Count 164 thou/uL (130-400); RBC Distribution Width 18.5 % (11.5-14.5); Red Blood Cell (RBC) Count 2.91 mill/uL (4.70-6.10); White Blood Cell (WBC) Count 5.4 thou/uL (4.8-10.8)
[2019-07-20 06:05] LABS: Anion Gap 14 mmol/L (10-20); BUN (Urea Nitrogen) 36 mg/dL (8.4-25.7); Calc. Creatinine Clearance 15 mL/min (70-130); Calcium 8.3 mg/dL (7.8-10.44); Carbon Dioxide 26 mmol/L (23-31); Chloride 99 mmol/L (98-107); Estimated GFR-MDRD 9; Glucose 134 mg/dL (80-115); Sodium 135 mmol/L (136-145)
--- NOTE | 2019-07-20 08:47 | PDOC.FM ---
- Subjective Subjective: Pt is s/p bilateral nephrectomy, cystectomy, prostatectomy due to bladder cancer. This was done at [facility] in April of this year. Pt was hospitalized about a month ago at [facility] for peritonitis. States that since then he has been doing well. Notes one instance of chills and sweats last night. Continued sputum production with his cough however this is improved from admission. - Objective Vital Signs & Weight: Vital Signs (12 hours) Temp Pulse Resp BP BP Pulse Ox 07/20/19 08:00 98.3 F 100 20 135/67 95 07/20/19 07:35 98.4 F 99 16 141/67 H 94 L 07/20/19 05:34 98.3 F 97 20 138/69 96 07/20/19 00:58 98.2 F 95 18 125/65 96 Weight Weight 92.986 kg I&O: 07/19/19 07/20/19 07/21/19 06:59 06:59 06:59 Intake Total 1690 270 Output Total 3000 Balance -1310 270 Result Diagrams: 07/20/19 05:22 07/20/19 05:22 Phys Exam - Physical Examination Constitutional: NAD HEENT: PERRLA, moist MMs Neck: no JVD, full ROM Respiratory: no wheezing, no rhonchi Diffuse rales, greater on the right, good excursion Cardiovascular: RRR, no significant murmur Gastrointestinal: soft, non-tender Musculoskeletal: no edema, pulses present Neurological: non-focal Psychiatric: normal affect, A&O x 3 Skin: no rash Dx/Plan (1) Pneumonia Code(s): J18.9 - PNEUMONIA, UNSPECIFIED ORGANISM Status: Acute Qualifiers: Laterality: right Lung location: lower lobe of lung (2) Diabetes mellitus Code(s): E11.9 - TYPE 2 DIABETES MELLITUS WITHOUT COMPLICATIONS Status: Chronic Qualifiers: Diabetes mellitus type: type 2 (3) Dyslipidemia Code(s): E78.5 - HYPERLIPIDEMIA, UNSPECIFIED Status: Chronic (4) HTN (hypertension) Code(s): I10 - ESSENTIAL (PRIMARY) HYPERTENSION Status: Chronic Qualifiers: Hypertension type: essential hypertension Qualified Code(s): I10 - Essential (primary) hypertension - Plan Plan: Health care acquired PNA - RLL pneumonia seen on CXR in dialysis pt - Abx Vanc (pharmacy to dose) and Zosyn - Afebrile through yesterday - No leukocytosis, trend CBC ESRD - S/p bilateral nephrectomy, prostatectomy, and cystectomy - , Th, Sat dialysis pt - does at home through trialysis catheter - Nephro following for inpt dialysis Normocytic Anemia - Likely 2/2 ESRD - Trend CBC Diabetes mellitus II - uncontrolled - Home rx (levemir and humilinR) + SSI - POC glucose checks and hypoglycemic protocol Hypertension - controlled - Home rx: Carvedilol DVT: Heparin Diet: CC Code: Full Addendum - Attending - Attending Attestation Date/Time: 07/20/19 2171 I personally evaluated the patient and discussed the management with Dr. Santillan. I agree with the History, Examination, Assessment and Plan documented above with any addition or exceptions noted below. Patient here for chills and probable pneumonia based on CXR and PCT level. He is feeling improved. He has high risk for MDR strep infection, and so we will change his abx to renally dose Levaquin and that should be sufficient. Continue to monitor. He is not requiring supplemental O2 and will keep him off that as best we can to prevent dependence.
[2019-07-20] MEDS: Famotidine 20 MG TAB PO SCH (08:55)
[2019-07-20] MEDS: Heparin 5,000 UNITS/ML VIAL SC SCH ×2 (08:56→19:53)
[2019-07-20] MEDS: Senokot S 8.6-50 MG TAB PO SCH ×2 (08:56→19:53)
[2019-07-20 10:42] LABS: Vancomycin, Random 16.3 ug/mL (See Comment)
--- NOTE | 2019-07-20 14:03 | PRG ---
DATE OF SERVICE: 07/20/2019 SUBJECTIVE: A 64-year-old gentleman, being seen for end-stage renal disease. The patient denied any nausea, vomiting, or chest pain. OBJECTIVE: See above. Awake, alert, in no acute distress. VITAL SIGNS: Afebrile, pulse 100, breathing 16, blood pressure 135/67. GENERAL APPEARANCE AND MENTAL STATUS: Fair. HEAD/NECK: Normocephalic. Atraumatic. EYES: EOMI. No deformity. EARS: Clear. No ulcers. NOSE: Intact. No lesions. MOUTH: Clear. No discharge. THROAT: Clear. No exudate. LUNGS: Clear. No crackles. CARDIAC: S1, S2. No rub. ABDOMEN: Benign. Bowel sounds positive. GENITALIA/RECTUM: [place] absent. BACK/EXTREMITIES: Edema 0+. NEUROLOGICAL: Alert and motor intact. SKIN: LYMPHATICS: LABORATORY DATA: Potassium 4. ASSESSMENT AND PLAN: 1. Stage 6 chronic kidney disease, continue hemodialysis. 2. Hypertension, stable. 3. Anemia, stable. Medications based on GFR appropriate. Job ID: [id number]
[2019-07-20] MEDS: Acetaminophen 325 MG TAB PO PRN (19:54)
[2019-07-21 06:39] LABS: #Eosinphils 0.1 thou/uL (0.0-0.7); #Lymphocytes 0.5 thou/uL (1.20-3.40); #Monocytes 0.5 thou/uL (0.11-0.59); #Neutrophils 3.5 thou/uL (1.40-6.50); %Basophils 0.6 % (0.0-1.0); %Eosinophils 1.9 % (0.0-10.0); %Lymphocytes 11.4 % (21.0-51.0); %Neutrophils 76.1 % (42.0-75.0); Hemoglobin 8.1 g/dL (14.0-18.0); Mean Corpuscular HGB CONC 30.7 g/dL (32.0-36.0); Mean Corpuscular Hemoglobin 27.1 pg (27.0-31.0); Mean Platelet Volume 9.5 fL (7.4-10.4); Platelet Count 141 thou/uL (130-400); RBC Distribution Width 18.6 % (11.5-14.5); Red Blood Cell (RBC) Count 2.99 mill/uL (4.70-6.10); White Blood Cell (WBC) Count 4.6 thou/uL (4.8-10.8)
[2019-07-21 06:57] LABS: Anion Gap 19 mmol/L (10-20); BUN (Urea Nitrogen) 45 mg/dL (8.4-25.7); Calc. Creatinine Clearance 12 mL/min (70-130); Calcium 8.7 mg/dL (7.8-10.44); Carbon Dioxide 22 mmol/L (23-31); Chloride 98 mmol/L (98-107); Estimated GFR-MDRD 7; Glucose 137 mg/dL (80-115); Potassium 4.6 mmol/L (3.5-5.1); Sodium 134 mmol/L (136-145)
[2019-07-21] MEDS: Famotidine 20 MG TAB PO SCH (07:44)
[2019-07-21] MEDS: Senokot S 8.6-50 MG TAB PO SCH ×2 (07:44→20:38)
[2019-07-21] MEDS: Heparin 5,000 UNITS/ML VIAL SC SCH ×2 (07:44→20:35)
--- NOTE | 2019-07-21 08:28 | PDOC.FM ---
- Subjective Subjective: Pt notes subjective fever overnight last night - temp was 100. Notes shortness of breath that is only present while laying down. Improvement in his cough. - Objective Vital Signs & Weight: Vital Signs (12 hours) Temp Pulse Resp BP Pulse Ox 07/21/19 07:50 97.8 F 87 22 H 152/75 H 97 07/21/19 07:40 94 L 07/21/19 04:28 97.5 F L 82 18 148/75 H 97 07/21/19 00:25 97.9 F 85 18 131/67 96 Weight Weight 92.986 kg I&O: 07/20/19 07/21/19 07/22/19 06:59 06:59 06:59 Intake Total 270 Balance 270 Result Diagrams: 07/21/19 05:49 07/21/19 05:49 Phys Exam - Physical Examination Constitutional: NAD HEENT: moist MMs Neck: full ROM Respiratory: no wheezing No respiratory distress Cardiovascular: RRR Neurological: non-focal, moves all 4 limbs Psychiatric: normal affect, A&O x 3 Dx/Plan (1) Pneumonia Code(s): J18.9 - PNEUMONIA, UNSPECIFIED ORGANISM Status: Acute Qualifiers: Laterality: right Lung location: lower lobe of lung (2) Diabetes mellitus Code(s): E11.9 - TYPE 2 DIABETES MELLITUS WITHOUT COMPLICATIONS Status: Chronic Qualifiers: Diabetes mellitus type: type 2 (3) Dyslipidemia Code(s): E78.5 - HYPERLIPIDEMIA, UNSPECIFIED Status: Chronic (4) HTN (hypertension) Code(s): I10 - ESSENTIAL (PRIMARY) HYPERTENSION Status: Chronic Qualifiers: Hypertension type: essential hypertension Qualified Code(s): I10 - Essential (primary) hypertension - Plan Plan: PNA - RLL pneumonia seen on CXR in dialysis pt - DC vanc zosyn - started levaquin yest, HD dosed - Afebrile - No leukocytosis, trend CBC - Rehab screen ordered ESRD - S/p bilateral nephrectomy, prostatectomy, and cystectomy - , , Sat dialysis pt - does at home through trialysis catheter - Nephro following for inpt dialysis Normocytic Anemia - Likely 2/2 ESRD - Trend CBC Diabetes mellitus II - uncontrolled - Home rx (levemir and humilinR) + SSI - POC glucose checks and hypoglycemic protocol Hypertension - controlled - Home rx: Carvedilol DVT: Heparin Diet: CC Code: Full Pending rehab screen for return to [facility] Addendum - Attending - Attending Attestation Date/Time: 07/21/19 2718 I personally evaluated the patient and discussed the management with Dr. Santillan. I agree with the History, Examination, Assessment and Plan documented above with any addition or exceptions noted below. Patient here for pneumonia in the setting of ESRD and recent hospitalization. He is overall looking well. Only requiring O2 when not deep breathing. Labs stable. He is now on Levaquin. Awaiting placement but should be stable for discharge once that is arranged.
[2019-07-21] MEDS ORDERED: Heparin 10,000 UNITS/ 10 ML VIAL ONE (09:00)
[2019-07-21] MEDS ORDERED: Vancomycin HCl 750 MG in Sodium Chloride 0.9% 250 ML 250 ML IVPB SCH (11:00)
[2019-07-21] MEDS ORDERED: Vancomycin HCl 500 MG in Sodium Chloride 0.9% 100 ML IVPB SCH (11:00)
[2019-07-21] MEDS ORDERED: HOLD VANCOMYCIN FOR LEVEL >20 FS SCH (11:00)
[2019-07-21] MEDS ORDERED: Vancomycin HCl 1.25 GM in Sodium Chloride 0.9% 250 ML 250 ML IVPB SCH (11:00)
[2019-07-21] MEDS ORDERED: Vancomycin HCl 1 GM in Premix Bag 1 BAG IVPB SCH (11:00)
--- NOTE | 2019-07-21 15:55 | PRG ---
DATE OF SERVICE: 07/21/2019 SUBJECTIVE: A 64-year-old gentleman being seen for end-stage renal disease. The patient denied any nausea, vomiting, or chest pain. OBJECTIVE: GENERAL: The patient is awake and alert. VITAL SIGNS: Afebrile, pulse 70, breathing 16, and blood pressure 138/75. GENERAL APPEARANCE AND MENTAL STATUS: Fair. HEAD/NECK: Normocephalic. Atraumatic. EYES: EOMI. No deformity. EARS: Clear. No ulcers. NOSE: Intact. No lesions. MOUTH: Clear. No discharge. THROAT: Clear. No exudate. LUNGS: Clear. No crackles. CARDIAC: S1, S2. No rub. ABDOMEN: Benign. Bowel sounds positive. GENITALIA/RECTUM: [place] absent. BACK/EXTREMITIES: Edema 0+. NEUROLOGICAL: Alert and motor intact. SKIN: LYMPHATICS: LABORATORY DATA: Hemoglobin of 8.1. ASSESSMENT AND PLAN: 1. Stage 6 chronic kidney disease, plan dialysis. 2. Hypertension, stable. 3. Anemia, stable. 4. Sepsis. We will continue vancomycin with dialysis and antibiotic management per primary team. Job ID: [id number]
--- NOTE | 2019-07-21 16:03 | PQF ---
CLINICAL DOCUMENTATION IMPROVEMENT CLARIFICATION FORM: ICD-10 Updated PLEASE DO AN ADDENDUM TO THE PROGRESS NOTE WITH ANY DOCUMENTATION UPDATES OR ADDITIONS AND CARRY THROUGH TO DC SUMMARY. THANK YOU. DATE: 07/21/19 ATTN: DR. PAREKH Please exercise your independent, professional judgment in responding to the clarification form. Clinical indicators are provided on the bottom of this form for your review Please check appropriate box(s): [ ] Aspiration Pneumonia [ ] Aspiration Bronchitis [ ] Empirically treating Gram Negative Pneumonia [ ] Empirically treating Anaerobic Pneumonia [ ] Pneumonia secondary to (specify organism / underlying disease) [x] Simple Pneumonia (community acquired - nosocomial) [ ] Bronchopneumonia [ ] Pneumonia of unknown etiology [ ] Other diagnosis [ ] Unable to determine In addition, please specify: Present on Admission (POA): [X] Yes [ ] No [ ] Unable to determine For continuity of documentation, please document condition throughout progress notes and discharge summary. Thank You. CLINICAL INDICATORS - SIGNS / SYMPTOMS / LABS H&P (07/18): "RIGHT LOWER LOBE PNEUMONIA" ER NOTE (07/17): "C/O FEVER ONSET YESTERDAY" PULSE 100 RISKS: [facility] PATIENT (ER NOTE 07/17) H/O DIABETES (ER NOTE 07/17) TREATMENT: IV VANCOMYCIN (ER-PRESENT) IV ZOSYN (ER 07/17) LEVAQUIN (STARTED 07/21) BLOOD CULTURES (07/17) [employer] Winform Viewer (This form is maintained as a part of the permanent medical record) 2014 [employer]. All Rights Reserved SANTY [email or web address] Office: [phone] [facility] HOSPITALNixon
[2019-07-22 04:18] LABS: #Eosinphils 0.5 thou/uL (0.0-0.7); #Lymphocytes 0.6 thou/uL (1.20-3.40); #Monocytes 0.6 thou/uL (0.11-0.59); #Neutrophils 3.6 thou/uL (1.40-6.50); %Basophils 0.4 % (0.0-1.0); %Eosinophils 8.7 % (0.0-10.0); %Monocytes 11.9 % (0.0-10.0); Hemoglobin 7.8 g/dL (14.0-18.0); Mean Corpuscular HGB CONC 31.9 g/dL (32.0-36.0); Mean Corpuscular Hemoglobin 27.4 pg (27.0-31.0); Mean Corpuscular Volume 85.9 fL (78.0-98.0); Platelet Count 176 thou/uL (130-400); RBC Distribution Width 18.5 % (11.5-14.5); Red Blood Cell (RBC) Count 2.85 mill/uL (4.70-6.10); White Blood Cell (WBC) Count 5.3 thou/uL (4.8-10.8)
[2019-07-22 04:38] LABS: Anion Gap 14 mmol/L (10-20); BUN (Urea Nitrogen) 24 mg/dL (8.4-25.7); Calc. Creatinine Clearance 19 mL/min (70-130); Calcium 8.5 mg/dL (7.8-10.44); Carbon Dioxide 26 mmol/L (23-31); Chloride 100 mmol/L (98-107); Estimated GFR-MDRD 11; Glucose 120 mg/dL (80-115); Potassium 4.1 mmol/L (3.5-5.1); Sodium 136 mmol/L (136-145)
[2019-07-22] MEDS: Heparin 5,000 UNITS/ML VIAL SC SCH ×2 (08:22→20:18)
[2019-07-22] MEDS: Famotidine 20 MG TAB PO SCH (08:23)
--- NOTE | 2019-07-22 10:32 | PDOC.FM ---
- Subjective Subjective: Denies shortness of breath. Improved cough and sputum production. No complaints. - Objective Vital Signs & Weight: Vital Signs (12 hours) Temp Pulse Resp BP Pulse Ox 07/22/19 07:47 98.2 F 97 17 122/62 94 L Weight Weight 92.986 kg I&O: 07/21/19 07/22/19 07/23/19 06:59 06:59 06:59 Intake Total 600 Balance 600 Result Diagrams: 07/22/19 03:52 07/22/19 03:52 Phys Exam - Physical Examination Constitutional: NAD HEENT: moist MMs Neck: supple, full ROM Respiratory: no wheezing, no rales, no rhonchi, clear to auscultation bilateral Good airmovement throughout Cardiovascular: RRR Gastrointestinal: soft, non-tender Musculoskeletal: no edema, pulses present Neurological: non-focal Psychiatric: normal affect, A&O x 3 Skin: no rash Dx/Plan (1) Pneumonia Code(s): J18.9 - PNEUMONIA, UNSPECIFIED ORGANISM Status: Acute Qualifiers: Laterality: right Lung location: lower lobe of lung (2) Diabetes mellitus Code(s): E11.9 - TYPE 2 DIABETES MELLITUS WITHOUT COMPLICATIONS Status: Chronic Qualifiers: Diabetes mellitus type: type 2 (3) Dyslipidemia Code(s): E78.5 - HYPERLIPIDEMIA, UNSPECIFIED Status: Chronic (4) HTN (hypertension) Code(s): I10 - ESSENTIAL (PRIMARY) HYPERTENSION Status: Chronic Qualifiers: Hypertension type: essential hypertension Qualified Code(s): I10 - Essential (primary) hypertension - Plan Plan: PNA - RLL pneumonia seen on CXR in dialysis pt - DC zosyn - started levaquin yest, HD dosed - Afebrile - No leukocytosis, trend CBC - Rehab screen ordered ESRD - S/p bilateral nephrectomy, prostatectomy, and cystectomy - , Th, Sat dialysis pt - does at home through trialysis catheter - Nephro following for inpt dialysis - Vanc cont Normocytic Anemia - Likely 2/2 ESRD - Trend CBC Diabetes mellitus II - uncontrolled - Home rx (levemir and humilinR) + SSI - POC glucose checks and hypoglycemic protocol Hypertension - controlled - Home rx: Carvedilol DVT: Heparin Diet: CC Code: Full Pending rehab screen for return to [facility] Addendum - Attending - Attending Attestation Date/Time: 07/22/19 5774 I personally evaluated the patient and discussed the management with Dr. Santillan. I agree with the History, Examination, Assessment and Plan documented above with any addition or exceptions noted below. Patient here for pneumonia and ESRD. He continues on Levaquin. Nephro has added Vanc for concern of bloodstream infection though cultures only 1/2 so I doubt this true infection. Discuss with Nephro but may be stable for discharge later today.
[2019-07-22] MEDS: Senokot S 8.6-50 MG TAB PO SCH ×2 (10:35→20:18)
[2019-07-22] MEDS ORDERED: EPOETIN ALFA-EPBX (ESRD) 10,000 UNIT/ML VIAL SC SCH (12:30)
--- NOTE | 2019-07-22 13:06 | PRG ---
DATE OF SERVICE: 07/22/2019 SUBJECTIVE: A 64-year-old gentleman being seen for end-stage renal disease. The patient denied nausea, vomiting, or chest pain. OBJECTIVE: GENERAL: The patient is awake and alert. VITAL SIGNS: Afebrile, pulse 97, breathing 16, blood pressure 137/69. GENERAL APPEARANCE AND MENTAL STATUS: Fair. HEAD/NECK: Normocephalic. Atraumatic. EYES: EOMI. No deformity. EARS: Clear. No ulcers. NOSE: Intact. No lesions. MOUTH: Clear. No discharge. THROAT: Clear. No exudate. LUNGS: Clear. No crackles. CARDIAC: S1, S2. No rub. ABDOMEN: Benign. Bowel sounds positive. GENITALIA/RECTUM: [place] absent. BACK/EXTREMITIES: Edema 0+. NEUROLOGICAL: Alert and motor intact. SKIN: LYMPHATICS: LABORATORY DATA: Reviewed. ASSESSMENT AND PLAN: 1. Stage 6 chronic kidney disease, plan dialysis. 2. Hypertension, stable. 3. Anemia, stable. 4. Medication based on GFR appropriate. 5. Anemia. Continue Epogen. Job ID: [id number]
[2019-07-23 06:25] LABS: #Eosinphils 0.4 thou/uL (0.0-0.7); #Lymphocytes 0.7 thou/uL (1.20-3.40); #Monocytes 0.6 thou/uL (0.11-0.59); #Neutrophils 2.9 thou/uL (1.40-6.50); %Basophils 0.3 % (0.0-1.0); %Eosinophils 9.2 % (0.0-10.0); %Neutrophils 62.6 % (42.0-75.0); Hemoglobin 7.4 g/dL (14.0-18.0); Mean Corpuscular HGB CONC 30.9 g/dL (32.0-36.0); Mean Corpuscular Hemoglobin 26.4 pg (27.0-31.0); Mean Corpuscular Volume 85.3 fL (78.0-98.0); Mean Platelet Volume 8.5 fL (7.4-10.4); Platelet Count 198 thou/uL (130-400); RBC Distribution Width 18.6 % (11.5-14.5); White Blood Cell (WBC) Count 4.6 thou/uL (4.8-10.8)
[2019-07-23 06:42] LABS: Anion Gap 14 mmol/L (10-20); BUN (Urea Nitrogen) 33 mg/dL (8.4-25.7); Calc. Creatinine Clearance 14 mL/min (70-130); Calcium 8.7 mg/dL (7.8-10.44); Carbon Dioxide 27 mmol/L (23-31); Chloride 99 mmol/L (98-107); Estimated GFR-MDRD 8; Glucose 117 mg/dL (80-115); Potassium 3.7 mmol/L (3.5-5.1); Sodium 136 mmol/L (136-145)
[2019-07-23 08:31] LABS: Vancomycin, Random 21.1 ug/mL (See Comment)
[2019-07-23] MEDS: Heparin 5,000 UNITS/ML VIAL SC SCH (09:01)
[2019-07-23] MEDS: Famotidine 20 MG TAB PO SCH (09:01)
[2019-07-23] MEDS: Senokot S 8.6-50 MG TAB PO SCH (09:01)
--- NOTE | 2019-07-23 09:39 | PDOC.FM ---
- Subjective Subjective: Pt denies any shortness of breath. Only utilizing O2 at night - RA during the day. Denies any fever or chills overnight. Will have hemodialysis today. - Objective Vital Signs & Weight: Vital Signs (12 hours) Temp Pulse Resp BP Pulse Ox 07/23/19 08:00 97.9 F 96 18 146/69 H 97 Weight Weight 92.986 kg I&O: 07/22/19 07/23/19 07/24/19 06:59 06:59 06:59 Intake Total 900 Balance 900 Result Diagrams: 07/23/19 05:39 07/23/19 05:39 Phys Exam - Physical Examination Constitutional: NAD HEENT: moist MMs, sclera anicteric Neck: no JVD, full ROM Respiratory: no wheezing, no rales, no rhonchi, clear to auscultation bilateral No resp distress Cardiovascular: RRR, no significant murmur Gastrointestinal: soft, non-tender Musculoskeletal: no edema, pulses present Neurological: moves all 4 limbs Psychiatric: normal affect, A&O x 3 Skin: no rash, cap refill <2 seconds Dx/Plan (1) Pneumonia Code(s): J18.9 - PNEUMONIA, UNSPECIFIED ORGANISM Status: Acute Qualifiers: Laterality: right Lung location: lower lobe of lung (2) Diabetes mellitus Code(s): E11.9 - TYPE 2 DIABETES MELLITUS WITHOUT COMPLICATIONS Status: Chronic Qualifiers: Diabetes mellitus type: type 2 (3) Dyslipidemia Code(s): E78.5 - HYPERLIPIDEMIA, UNSPECIFIED Status: Chronic (4) HTN (hypertension) Code(s): I10 - ESSENTIAL (PRIMARY) HYPERTENSION Status: Chronic Qualifiers: Hypertension type: essential hypertension Qualified Code(s): I10 - Essential (primary) hypertension - Plan Plan: PNA - RLL pneumonia seen on CXR in dialysis pt - DC zosyn - started levaquin yest, HD dosed - Afebrile - No leukocytosis, trend CBC - Rehab screen done - Pt pending [facility] approval [facility] - S/p bilateral nephrectomy, prostatectomy, and cystectomy - , , Sat dialysis pt - does at home through trialysis catheter - Nephro following for inpt dialysis - Vanc cont Normocytic Anemia - Likely 2/2 ESRD - Trend CBC Diabetes mellitus II - uncontrolled - Home rx (levemir and humilinR) + SSI - POC glucose checks and hypoglycemic protocol Hypertension - controlled - Home rx: Carvedilol DVT: Heparin Diet: CC Code: Full Insurance approval for return to [facility] pending. Hemodialysis today. Addendum - Attending - Attending Attestation Date/Time: 07/23/19 6028 I personally evaluated the patient and discussed the management with Dr. Santillan. I agree with the History, Examination, Assessment and Plan documented above with any addition or exceptions noted below. Patient overall stable. He is pending placement at rehab and will be stable for transfer there once his insurance approves it.
--- NOTE | 2019-07-23 12:02 | PRG ---
DATE OF SERVICE: 07/23/2019 SUBJECTIVE: A 64-year-old gentleman being seen for end-stage renal disease. The patient denied nausea, vomiting, or chest pain. OBJECTIVE: CONSTITUTIONAL: The patient is awake and alert. VITAL SIGNS: Pulse 93, breathing 16, blood pressure 146/69. GENERAL APPEARANCE AND MENTAL STATUS: Fair. HEAD/NECK: Normocephalic. Atraumatic. EYES: EOMI. No deformity. EARS: Clear. No ulcers. NOSE: Intact. No lesions. MOUTH: Clear. No discharge. THROAT: Clear. No exudate. LUNGS: Clear. No crackles. CARDIAC: S1, S2. No rub. ABDOMEN: Benign. Bowel sounds positive. GENITALIA/RECTUM: [place] absent. BACK/EXTREMITIES: Edema 0+. NEUROLOGICAL: Alert and motor intact. SKIN: LYMPHATICS: LABORATORY DATA: Reviewed. ASSESSMENT AND PLAN: 1. Chronic kidney disease, stage 6, stable. 2. Hypertension, stable. 3. Anemia, plan transfusion with dialysis. Medication based on GFR appropriate. Job ID: [id number]
[2019-07-23 13:46] VITALS: BP 119/62; TEMP 98.1
[2019-07-23] MEDS ORDERED: Heparin 10,000 UNITS/ 10 ML VIAL ONE (15:00)
--- NOTE | 2019-07-24 09:31 | PQF ---
MARY WILDE JASON MD *corey* [id number] CLINICAL DOCUMENTATION CLARIFICATION FORM: POST DISCHARGE Addendum to original discharge summary date: ____ Late entry note date: __ DATE: 07-24-2019 ATTN:Jagdeep Leonard Please exercise your independent, professional judgment in responding to the clarification form. Clinical indicators are provided on the bottom of this form for your review Can you please specify whether sepsis is ruled in or ruled out during this encounter? Please check appropriate box(s) to clarify if the following diagnosis has been ruled in or ruled out: Sepsis [ X ] Ruled in diagnosis [ X] Continue to treat [ ] Resolved [ ] Ruled out diagnosis [ ] Cannot rule out diagnosis [ ] Other diagnosis please specify: [ ] Unable to determine For continuity of documentation, please document condition throughout progress notes and discharge summary. Thank You. CLINICAL INDICATORS: ED 07/18 pg1 coming from [facility] 103. 99.7 HP 07/[address] Perez having fever associated with severe chills with no clear triggers or alleviating factor HP 07/[address] Perez Right lower lobe Pneumonia on chest xray PN 07/[address] Santillan So unsure if HCAP or CAP. 1/2 positive MRSE blood cultures PN 07/[address] Santillan high risk for MDR strep infection PN 07/[address] Santillan Sepsis Laboratory WBC= 5.0, 5.1, 5.4, 4.6, 5.3, 4.6 RISK FACTOR: HP Dr. Perez- uncontrolled Diabetes HP Dr. Perez- ESRD Consutl Dr. Eddy- Obesity HP- Lobar Pneumonia TREATMENTS: Microbiology-blood cultures Imaging- Chest xray Laboratory monitoring JAN 03- Vancomycin IV JAN 03- Zosyn IV JAN 03- IV fluids (This form is maintained as a part of the permanent medical record) 2014 [employer]. All Rights Reserved Bryanna [email or web address] [not provided] MTDD
--- NOTE | 2019-07-25 06:07 | DIS ---
DATE OF ADMISSION: 07/18/2019 DATE OF DISCHARGE: 07/23/2019 PRIMARY CARE PHYSICIAN: Magan Yu MD RESIDENT: Neo Santillan DO ADMITTING ATTENDING: Dr. Thao Dorman DISCHARGE ATTENDING: Dr. Etienne Hamm CONSULTS: 1. Nephrology, Dr. Rain Eddy. 2. Physical Therapy and Occupational Therapy. PROCEDURES: None. PRIMARY DIAGNOSES: 1. Community-acquired pneumonia. 2. End-stage renal disease. 3. Normocytic anemia. SECONDARY DIAGNOSES: 1. Uncontrolled diabetes. 2. Hypertension. DISCHARGE MEDICATIONS: 1. Coreg 25 mg b.i.d. 2. Milk of magnesia 10 to 20 mL daily p.r.n. 3. Senna one tab p.o. b.i.d. 4. Lyrica one capsule p.o. b.i.d. 5. MiraLAX 17 g pack daily. 6. Protonix 40 mg daily. 7. Feosol 1 tablet b.i.d. 8. Fenofibrate 145 mg daily. 9. Aspirin 81 mg daily. 10. Guaifenesin 200 mg/5 mL liquid 10 mL p.o. p.r.n. 11. Catapres 0.1 mg p.o. p.r.n. 12. Simethicone 80 mg one tablet p.o. p.r.n. 13. Calcium carbonate 500 mg one tablet p.o. p.r.n. 14. Benzocaine/Menthol Lozenges 1 p.o. b.i.d. 15. Extra-strength Tylenol 500 mg tablet 1 tablet p.o. q.4 hours p.r.n. 16. Levemir 10 units subcu at bedtime. 17. Levofloxacin 500 mg p.o. q.48 hours x2, on dialysis days. Administer antibiotics following dialysis. HISTORY OF PRESENT ILLNESS AND HOSPITAL COURSE: A 64-year-old male patient with history of end-stage renal disease, on hemodialysis secondary to bilateral nephrectomy and cystectomy due to renal and bladder cancer. The patient currently resides at [facility] and came to the hospital after having fever associated with chills during dialysis with no clear triggers or alleviating factors. The patient notes some associated cough with scant sputum production. Initial workup in the ED was significant for a right lower lobe pneumonia noted on chest x-ray. Oxygen saturation at that time was 88% on room air. The patient was afebrile with a white count of 6.9, and a lactic acid of 0.8. The patient was admitted to the hospital and initially started on vancomycin and Zosyn upon admission in the hospital. Subsequent day, the patient had a transition of care from [facility] to [facility] [employer] team. Upon review of the patient's chart, it was felt that the patient would benefit from a change of antibiotic course from current regimen to Levaquin for coverage of multi-drug resistant staphylococcal pneumonia. Levaquin was started on a regimen congruent with a hemodialysis patient. Throughout the patient's stay, the patient had 2 fevers over the night early in his admission, which resolved after a couple of days of antibiotics. He remained without leukocytosis. Throughout his stay, the patient's oxygen requirements were slowly weaned. At the time of discharge, the patient was only requiring oxygen at a rate of 1 to 2L at night and only intermittently throughout the day. The patient stated that his cough and sputum production have greatly improved and denied any shortness of breath at rest. The patient was subsequently re-evaluated for return to inpatient rehab, for which he was approved. Return precautions were discussed with the patient including fevers/chills, worsening cough and sputum production, increasing shortness of breath. The patient voiced understanding and was agreeable for discharge back to [facility]. DISPOSITION: Stable. DISCHARGE INSTRUCTIONS: 1. Location: Inpatient Rehab, [facility]. 2. Diet: Carb conscious. 3. Activity: As tolerated. 4. Followup: PCP, Dr. Yu within 7 days. Job ID: [id number] [facility]
== END 2019-07-23 19:50 | DRG 871 ==
LOC: ERS 21:04 → T4-B 07-18 00:17
PROVIDERS: ADMIT Hospitalist; ATTEND Hospitalist
PROC: 5A1D70Z Performance of Urinary Filtration, Intermittent, Less than 6 Hours Per Day (ICD-10-PCS; principal; 2019-07-18)
PROC: 3E0234Z Introduction of Serum, Toxoid and Vaccine into Muscle, Percutaneous Approach (ICD-10-PCS; 2019-07-18)
PROC: 30233N1 Transfusion of Nonautologous Red Blood Cells into Peripheral Vein, Percutaneous Approach (ICD-10-PCS; 2019-07-23)
DX: A41.9 Sepsis, unspecified organism (principal); J18.1 Lobar pneumonia, unspecified organism; N18.6 End stage renal disease; I12.0 Hypertensive chronic kidney disease with stage 5 chronic kidney disease or end stage renal disease; E11.22 Type 2 diabetes mellitus with diabetic chronic kidney disease; D63.1 Anemia in chronic kidney disease; E66.9 Obesity, unspecified; E78.5 Hyperlipidemia, unspecified; Y95 Nosocomial condition; Z23 Encounter for immunization; Z90.5 Acquired absence of kidney; Z99.2 Dependence on renal dialysis; Z79.4 Long term (current) use of insulin; Z90.6 Acquired absence of other parts of urinary tract; Z68.27 Body mass index [BMI] 27.0-27.9, adult; Z85.51 Personal history of malignant neoplasm of bladder; Z85.46 Personal history of malignant neoplasm of prostate; Z85.528 Personal history of other malignant neoplasm of kidney; Z87.891 Personal history of nicotine dependence; Z79.899 Other long term (current) drug therapy; Z79.82 Long term (current) use of aspirin
CPT/HCPCS: 36415; 36416; 36430; 71045; 80048; 80053; 80202; 82550; 83605; 83690; 84145; 85025; 85610; 85730; 86140; 86850; 86900; 86901; 87040; 87077; 87149; 87186; 87804; 90935; 93005; 94760; 96374; G0257; J1644; J2543; J3370; J3490; J7050; P9016; Q0162; Q5105